=== PATIENT | male | born 1960 | race Caucasian/White ===

== ENCOUNTER 2022-10-07 10:35 | Inpatient (IN) | payer MEDICAID, SELFPAY ==
[2022-10-07] VITALS (13 sets, daily range): BP systolic 106–152; BP diastolic 58–74; PULSE 71–151; RESP 16–22; TEMP 36.2–38.5; O2SAT 88–97; BMI 23.9; BMI 25.9
--- NOTE | ~2022-10-07 | XR_ITS ---
EXAMINATION: XR CHEST CLINICAL INFORMATION: Shortness of breath. COMPARISON: Most recent chest radiograph dated 07/04/2011. TECHNIQUE: Frontal view of the chest was obtained. FINDINGS: Diffuse, dense patchy opacities throughout the entirety of the left lung. The right lung is clear. No pleural effusion or pneumothorax. Unremarkable cardiomediastinal silhouette. No acute osseous abnormality. XR/XR chest 1V IMPRESSION: Diffuse, dense patchy opacities throughout the entirety of the left lung. Findings are concerning for an infectious or inflammatory process.
--- NOTE | ~2022-10-07 | CT_ITS ---
EXAMINATION: CT CHEST, ABDOMEN AND PELVIS WITH CONTRAST CLINICAL INFORMATION: Shortness of breath. Hypoxia. Question perforation. COMPARISON: Chest radiograph done earlier the same day. CT abdomen/pelvis dated 12/31/2014. TECHNIQUE: Contiguous axial thin section helical images of the chest, abdomen and pelvis were performed following the administration of oral contrast and 85 mL of intravenous Omnipaque 350. The data set was reformatted in the coronal and sagittal planes and reviewed on an independent workstation. This CT examination was performed using dose optimization techniques as appropriate, variously including the following: *Automated exposure control *Adjustment of mA and/or kV according to patient size (this includes techniques or standardized protocols for targeted exams where dose is matched to indication/reason for exam; i.e. extremities or head) *Use of iterative reconstruction technique DLP: 818 mGy-cm. FINDINGS: LUNGS: There are diffuse patchy and centrally dense airspace opacities throughout the entirety of the left lung. Minimal patchy, ground-glass airspace opacities throughout the entirety of the right lung. No large mass or pulmonary nodule. The central airways are patent. PLEURA: No pleural effusion or pneumothorax. No pleural mass or thickening. MEDIASTINUM: No cardiomegaly. No significant pericardial effusion. No thoracic aortic dilatation or dissection. No significant mediastinal or hilar lymphadenopathy. No significant coronary artery calcification. CHEST WALL/AXILLA: No lymphadenopathy. THYROID: Unremarkable. LIVER, GALLBLADDER, AND BILIARY TREE: Normal size, shape, and attenuation. No focal hepatic lesion. No intra or extrahepatic biliary ductal dilatation. The gallbladder is unremarkable with no evidence of radiopaque gallstones, gallbladder wall thickening, or obvious pericholecystic inflammatory changes. PANCREAS: Atrophic. No inflammatory change. SPLEEN: Unremarkable. ADRENAL GLANDS: Unremarkable. KIDNEYS AND URETERS: Normal size, shape, and attenuation. No hydronephrosis, hydroureter, or calculi. No perinephric stranding. BLADDER: Unremarkable. GASTROINTESTINAL TRACT: No bowel wall thickening or inflammatory change. No bowel dilatation. No small or large bowel obstruction. The appendix is unremarkable. PERITONEAL CAVITY: No intra-abdominal free air or free fluid. ABDOMINAL WALL: No significant abdominal wall hernia. LYMPH NODES: No significant lymphadenopathy. VASCULAR: Contrast opacifies the abdominal aorta and its branch vessels. No abdominal aortic dilatation or dissection. Scattered atherosclerotic calcifications. The IVC is unremarkable. PELVIC VISCERA: Prominent prostatomegaly. OSSEOUS STRUCTURES: No acute osseous abnormality. No lytic or blastic osseous lesion. CT/CT abdomen pelvis w IV con IMPRESSION: 1. Diffuse patchy and centrally dense airspace opacities throughout the entirety of the left lung. Minimal patchy, ground-glass airspace opacities throughout the entirety of the right lung. Findings are consistent with multifocal pneumonia. No pleural effusion. 2. No significant lymphadenopathy. 3. No bowel wall thickening or inflammatory change. No small or large bowel obstruction. Unremarkable appendix. 4. No intra-abdominal mass, lymphadenopathy, or ascites. 5. Prominent prostatomegaly.
--- NOTE | ~2022-10-07 | XR_ITS ---
EXAMINATION: XR ABDOMEN KUB CLINICAL INDICATION: Abdominal distention. COMPARISON: CT abdomen and pelvis 10/07/2022 TECHNIQUE: AP view of the abdomen. FINDINGS: There is scattered stool and gas seen throughout the colon without any significant distention. There is no organomegaly. No radiopaque gallstones or renal calculi seen. There is extruded contrast opacifying urinary bladder from earlier CT abdomen and pelvis. No gross bony abnormality. XR/XR KUB IMPRESSION: Mild to moderate constipation.
--- NOTE | 2022-10-07 10:40 | ECG_ITS ---
Test Reason : SOB Blood Pressure : / mmHG Vent. Rate : 149 BPM Atrial Rate : 149 BPM P-R Int : 148 ms QRS Dur : 070 ms QT Int : 274 ms P-R-T Axes : 052 019 076 degrees QTc Int : 431 ms Sinus tachycardia Nonspecific T wave abnormality Abnormal ECG When compared with ECG of 03-FEB-2013 08:43, Vent. rate has increased BY 88 BPM Nonspecific T wave abnormality now evident in Inferior leads Referred By: Generic ED Physician Electronically Signed By:Jose Luis Nixon
[2022-10-07] MEDS: Metoprolol Tartrate 5 MG/5 ML VIAL IVPUSH (10:46)
--- NOTE | 2022-10-07 10:49 | ED.GENADULT ---
HPI - General Adult General Chief complaint: Upper Respiratory Symptoms Stated complaint: arrived by ems Time Seen by Provider: 10/07/22 10:42 Source: patient and EMS Mode of arrival: EMS History of Present Illness HPI narrative: 62-year-old male, diabetic, denies COPD, appears to be in significant pain, EMS states that he was found with an O2 sat of 50%, states that he was seen at [facility] on Saturday. Related Data Home Medications Medication Instructions Recorded Confirmed acetaminophen 500 mg tablet 1,000 mg PO Q8H PRN Pain 10/07/22 alprazolam 2 mg tablet 2 mg PO TID PRN Anxiety 10/07/22 baclofen 20 mg tablet 20 mg PO BID PRN muscle spasm 10/07/22 betamethasone dipropionate 0.05 % 1 appl topical BID 10/07/22 topical cream cholecalciferol (vitamin D3) 50 50 mcg PO DAILY 10/07/22 mcg (2,000 unit) capsule clonidine HCl 0.1 mg tablet 0.1 mg PO BID PRN Anxiety 10/07/22 duloxetine 30 mg capsule,delayed 30 mg PO BEDTIME 10/07/22 release empagliflozin 10 mg tablet 10 mg PO DAILY 10/07/22 (Jardiance) ezetimibe 10 mg tablet 10 mg PO DAILY 10/07/22 insulin glargine 100 unit/mL (3 52 unit subcut BID 10/07/22 mL) subcutaneous pen (Lantus Solostar U-100 Insulin) linagliptin 5 mg tablet (Tradjenta) 5 mg PO DAILY 10/07/22 losartan 25 mg tablet 12.5 mg PO DAILY 10/07/22 magnesium oxide 400 mg (241.3 mg 400 mg PO BEDTIME 10/07/22 magnesium) tablet melatonin 3 mg tablet 3 mg PO BEDTIME insomnia 10/07/22 metformin 1,000 mg tablet 1,000 mg PO BID 10/07/22 metoprolol tartrate 25 mg tablet 12.5 mg PO DAILY 10/07/22 mirtazapine 7.5 mg tablet 7.5 mg PO BEDTIME 10/07/22 multivitamin with folic acid 400 1 tab PO DAILY 10/07/22 mcg tablet (Daily-Robert (with folic acid)) oxycodone 5 mg tablet 10 mg PO Q4H PRN severe pain 10/07/22 pantoprazole 20 mg tablet,delayed 20 mg PO DAILY 10/07/22 release pregabalin 100 mg capsule 100 mg PO BID 10/07/22 primidone 50 mg tablet 50 mg PO DAILY 10/07/22 sertraline 100 mg tablet 100 mg PO DAILY 10/07/22 simvastatin 80 mg tablet 80 mg PO BEDTIME 10/07/22 tamsulosin 0.4 mg capsule 0.4 mg PO BEDTIME 10/07/22 Allergies Allergy/AdvReac Type Severity Reaction Status Date / Time No Known Allergies Allergy Unverified 12/10/19 15:45 Review of Systems Review of Systems: Limited due to patient's respiratory status. [facility] Past Medical History Source: nursing notes reviewed Social History Social History Alcohol intake: former Smoked in Last 30 Days: Yes Use of substances other than those prescribed or required for medical reasons: No Advance Directives: No Advance Directives Information Provided: No Physical Exam ED Vital Signs: Vital Signs - 24 hr 10/07/22 10:42 10/07/22 11:27 10/07/22 11:27 Temperature 98.8 F 98.8 F Pulse Rate 150 H 119 H Respiratory Rate 22 H 22 H Blood Pressure 106/58 L 143/73 H Pulse Oximetry 92 92 Oxygen Delivery Method Non-Rebreather Mask High Flow Nasal Cannula High Flow Nasal Cannula Oxygen Flow Rate 92 10/07/22 11:41 10/07/22 11:58 10/07/22 12:02 Temperature 99.8 F 101.3 F H Pulse Rate 121 H 120 H Respiratory Rate 18 20 18 Blood Pressure 152/73 H Pulse Oximetry 92 Oxygen Delivery Method High Flow Nasal Cannula Oxygen Flow Rate BMI result Body Mass Index 23.9 VITAL SIGNS: Reviewed. GENERAL: Well developed, well nourished, in moderate to severe distress. HEAD: Normocephalic/atraumatic, EYES: PERRLA, EOMI EARS: Ext canals without abnormality NOSE: Nares patent bilateral OROPHARYNX: no oral lesions noted, posterior pharynx clear and non-erythematous without noted tonsillar enlargement/erythema/exudates NECK: Supple, no adenopathy LUNGS: Breath sounds present bilaterally. SpO2<92> on 100% non-rebreather CARDIOVASCULAR: Sinus tachycardia and rhythm without noted murmurs, no JVD or lower extremity edema. ABDOMEN: Soft, non-tender, non-distended with bowel sounds. MUSCULOSKELETAL: No tenderness, deformities, or effusions noted on gross inspection. EXTREMITIES: No cyanosis, clubbing or edema. SKIN: Inspection of the skin reveals no rashes NEUROLOGIC: Alert and oriented x 4. Strength and sensation to light touch were grossly intact x 4. Medications Administered Discontinued Medications Generic Name Dose Route Start Last Admin Trade Name Freq PRN Reason Stop Dose Admin Sodium Chloride 1,000 mls @ 999 mls/hr 10/07/22 11:00 10/07/22 12:03 Ns IV 10/07/22 12:00 Infused .Q1H1M RYAN Infusion Iohexol 100 ml 10/07/22 11:19 10/07/22 11:19 Iohexol 350 Mg/Ml 100 Ml Infus..Btl IV 10/07/22 11:20 85 ml ONCE ONE Administration Metoprolol Tartrate 5 mg 10/07/22 10:43 10/07/22 10:46 Metoprolol Tartrate 5 Mg/5 Ml Vial IVPUSH 10/07/22 10:44 5 mg ONCE ONE Administration Medical Decision Making Medical Decision Making MDM Narrative: 62-year-old male with history and clinical presentation, DDX: Pneumonia, pneumothorax, chronic lung disease, CHF exacerbation, ACS, GI bleed, abdominal perforation. 1057: There is noted infiltrate on the left lung and concern for possible intra-abdominal perforation via chest x-ray. Son is in the waiting room and will obtain collateral information. 1103: I spoke with the son who states that is father was discharged from [facility] yesterday and he is concerned that this respiratory distress is driven by patient's copious vaping. Patient is also on chronic opioids for chronic pain. Patient himself denies vaping today. Attempts to place patient on Oxymizer instead of 100% non-rebreather, not successful as oxygenation was noted to drop down to 88%. After imaging studies will place patient on high-flow. Lactic acid and blood cultures were sent, patient has received 1 L of IV fluids and does not qualify for sepsis fluids at this time as he has not been hypotensive nor has he had a lactic acid greater than 4. ABG demonstrates hypoxia without hypercapnia and no evidence to suggest acidosis. Target for high-flow will be 92%, patient does have a vaping history, I did review the documentation from [facility] and that chest x-ray from 10/05 did not demonstrate any evidence to suggest a pneumonia. However, it did appear that patient showed up with an unspecified encephalopathy and required Narcan and had a stroke workup which was negative. Hematologic indices do not demonstrate any leukocytosis but there is a left shift, there is a normocytic anemia without thrombocytopenia. Respiratory panel is pending for evaluation of possible COVID-19 infection. No further evidence to suggest GI bleed or abdominal perforation, and BNP is within normal limits so pulmonary congestion not a factor in patient's hypoxia. Chemistry indices negative for WILLIAM or electrolyte abnormalities, hyperglycemia is noted. 1217: I discussed the case with inpatient hospitalist who accepts admission. Differential Diagnosis Differential Diagnoses: The differential diagnosis associated with the presentation includes Please see the discussion above Admission/Observation Consideration of admission/observation: Escalation of care including admission/observation considered Please see the discussion above Consult Healthcare Provider Management of the patient was discussed with: Hospitalist Please see the discussion above Lab Data MDM Lab Attestation statement: I reviewed the patient's lab results. Please see the discussion above 10/07/22 10:52 Labs: Lab Results 10/07/22 10/07/22 10/07/22 Range/Units 10:52 10:52 10:53 WBC 7.4 (4.8-10.8) X10*3/uL RBC 5.23 (4.60-5.80) X10*6/uL Hgb 13.5 L (14.0-18.0) g/dl Hct 42.0 (42.0-52.0) % MCV 80.3 (80.0-98.0) fL MCH 25.8 L (27.0-33.0) pg MCHC 32.1 (31.0-36.0) g/dl RDW 15.4 (11.0-16.0) % Plt Count 224 (160-400) X10*3/uL MPV 12.4 (9.4-12.4) fL Immature Gran % (Auto) 0.1 (0.0-0.4) % Neut % (Auto) 79.3 H (45-73) % Lymph % (Auto) 15.7 L (20-40) % [place] % (Auto) 4.3 (2-11) % Eos % (Auto) 0.3 (0-4) % Baso % (Auto) 0.3 (0-2) % Lymph # (Auto) 1.2 (1.2-4.9) X10*3/uL [place] # (Auto) 0.3 (0.1-1.2) X10*3/uL Eos # (Auto) 0.0 (0.0-0.4) X10*3/uL Baso # (Auto) 0.0 (0.0-0.2) X10*3/uL Abs Immat Gran (auto) 0.01 (0.00-0.03) X10*3/uL Absolute Neuts (auto) 5.9 (2.0-8.3) x10*3/uL Absolute Nucleated RBC 0.000 (0.0-0.012) X10*3/uL Nucleated RBC % (auto) 0.0 (0.0-0.2) /100WBC PT (10.0-13.1) SEC INR (0.9-1.1) O2 Saturation % ABG pH at Pt Temp (7.35-7.45) ABG pCO2 at Pt Temp (32-45) mmHg ABG pO2 at Pt Temp (83-108) mmHg ABG HCO3 (22-26) mmol/L ABG Base Excess (Actual) mmol/L VBG pH (7.32-7.43) VBG pCO2 mmHg VBG pO2 mmHg VBG HCO3 (22-26) mmol/L VBG O2 Saturation % VBG Base Excess mmol/L Sodium (135-145) mmol/L Potassium (3.3-5.1) mmol/L Chloride (96-108) mmol/L Carbon Dioxide (22-29) mmol/L Anion Gap (12-20) BUN (9-16) mg/dL Creatinine (0.5-1.4) mg/dL Estim Creat Clear Calc Estimated GFR Random Glucose (60-115) mg/dL Lactic Acid 3.5 H* (0.5-2.0) mmol/L Calcium (8.4-10.2) mg/dL Total Bilirubin (0.0-1.0) mg/dL AST (5-37) U/L ALT (0-40) U/L Alkaline Phosphatase (39-117) U/L B-Natriuretic Peptide 31 (<100) pg/mL Total Protein (6.5-8.0) g/dL Albumin (3.5-5.0) g/dL Ethyl Alcohol mg/dL 10/07/22 10/07/22 10/07/22 Range/Units 10:55 10:57 11:45 WBC (4.8-10.8) X10*3/uL RBC (4.60-5.80) X10*6/uL Hgb (14.0-18.0) g/dl Hct (42.0-52.0) % MCV (80.0-98.0) fL MCH (27.0-33.0) pg MCHC (31.0-36.0) g/dl RDW (11.0-16.0) % Plt Count (160-400) X10*3/uL MPV (9.4-12.4) fL Immature Gran % (Auto) (0.0-0.4) % Neut % (Auto) (45-73) % Lymph % (Auto) (20-40) % [place] % (Auto) (2-11) % Eos % (Auto) (0-4) % Baso % (Auto) (0-2) % Lymph # (Auto) (1.2-4.9) X10*3/uL [place] # (Auto) (0.1-1.2) X10*3/uL Eos # (Auto) (0.0-0.4) X10*3/uL Baso # (Auto) (0.0-0.2) X10*3/uL Abs Immat Gran (auto) (0.00-0.03) X10*3/uL Absolute Neuts (auto) (2.0-8.3) x10*3/uL Absolute Nucleated RBC (0.0-0.012) X10*3/uL Nucleated RBC % (auto) (0.0-0.2) /100WBC PT 10.0 (10.0-13.1) SEC INR 0.9 (0.9-1.1) O2 Saturation % ABG pH at Pt Temp (7.35-7.45) ABG pCO2 at Pt Temp (32-45) mmHg ABG pO2 at Pt Temp (83-108) mmHg ABG HCO3 (22-26) mmol/L ABG Base Excess (Actual) mmol/L VBG pH 7.50 H (7.32-7.43) VBG pCO2 30 mmHg VBG pO2 69 mmHg VBG HCO3 23 (22-26) mmol/L VBG O2 Saturation 92.0 % VBG Base Excess 1.6 mmol/L Sodium 144 (135-145) mmol/L Potassium 3.6 (3.3-5.1) mmol/L Chloride 107 (96-108) mmol/L Carbon Dioxide 21 L (22-29) mmol/L Anion Gap 20 (12-20) BUN 14 (9-16) mg/dL Creatinine 1.30 (0.5-1.4) mg/dL Estim Creat Clear Calc 61.9 Estimated GFR 56 Random Glucose 312 H (60-115) mg/dL Lactic Acid (0.5-2.0) mmol/L Calcium 9.8 (8.4-10.2) mg/dL Total Bilirubin 0.4 (0.0-1.0) mg/dL AST 26 (5-37) U/L ALT 22 (0-40) U/L Alkaline Phosphatase 128 H (39-117) U/L B-Natriuretic Peptide (<100) pg/mL Total Protein 7.2 (6.5-8.0) g/dL Albumin 3.9 (3.5-5.0) g/dL Ethyl Alcohol < 10 mg/dL 10/07/22 Range/Units 11:47 WBC (4.8-10.8) X10*3/uL RBC (4.60-5.80) X10*6/uL Hgb (14.0-18.0) g/dl Hct (42.0-52.0) % MCV (80.0-98.0) fL MCH (27.0-33.0) pg MCHC (31.0-36.0) g/dl RDW (11.0-16.0) % Plt Count (160-400) X10*3/uL MPV (9.4-12.4) fL Immature Gran % (Auto) (0.0-0.4) % Neut % (Auto) (45-73) % Lymph % (Auto) (20-40) % [place] % (Auto) (2-11) % Eos % (Auto) (0-4) % Baso % (Auto) (0-2) % Lymph # (Auto) (1.2-4.9) X10*3/uL [place] # (Auto) (0.1-1.2) X10*3/uL Eos # (Auto) (0.0-0.4) X10*3/uL Baso # (Auto) (0.0-0.2) X10*3/uL Abs Immat Gran (auto) (0.00-0.03) X10*3/uL Absolute Neuts (auto) (2.0-8.3) x10*3/uL Absolute Nucleated RBC (0.0-0.012) X10*3/uL Nucleated RBC % (auto) (0.0-0.2) /100WBC PT (10.0-13.1) SEC INR (0.9-1.1) O2 Saturation 83.0 % ABG pH at Pt Temp 7.35 (7.35-7.45) ABG pCO2 at Pt Temp 42 (32-45) mmHg ABG pO2 at Pt Temp 58 L (83-108) mmHg ABG HCO3 23 (22-26) mmol/L ABG Base Excess (Actual) -1.7 mmol/L VBG pH (7.32-7.43) VBG pCO2 mmHg VBG pO2 mmHg VBG HCO3 (22-26) mmol/L VBG O2 Saturation % VBG Base Excess mmol/L Sodium (135-145) mmol/L Potassium (3.3-5.1) mmol/L Chloride (96-108) mmol/L Carbon Dioxide (22-29) mmol/L Anion Gap (12-20) BUN (9-16) mg/dL Creatinine (0.5-1.4) mg/dL Estim Creat Clear Calc Estimated GFR Random Glucose (60-115) mg/dL Lactic Acid (0.5-2.0) mmol/L Calcium (8.4-10.2) mg/dL Total Bilirubin (0.0-1.0) mg/dL AST (5-37) U/L ALT (0-40) U/L Alkaline Phosphatase (39-117) U/L B-Natriuretic Peptide (<100) pg/mL Total Protein (6.5-8.0) g/dL Albumin (3.5-5.0) g/dL Ethyl Alcohol mg/dL Independent Interpretation I performed an independent interpretation of an: EKG Interpretation: Sinus tachycardia, HR-149, no STEMI, MN/QRS/QTC is within normal limits. Radiology Impression Radiologist Impression: Multifocal pneumonia, no abdominal perforation otherwise my interpretation is in agreement with radiology's impression. Chronic Conditions Patient?s care impacted by: Diabetes Critical Care Time Critical Care Time Critical Care Time: Yes Total Critical Care Time: 60 Attestation: I personally attest to this time spent taking care of the patient. Discharge Plan Discharge Clinical Impression: Sepsis, Multifocal pneumonia, Acute respiratory failure with hypoxia Patient Disposition: Admitted As Inpatient
[2022-10-07 10:59] LABS: MANUAL DIFF FLAG NO
[2022-10-07 11:00] LABS: Basophils Percent Auto 0.3 % (0-2); Eosinophils Percent Auto 0.3 % (0-4); Hemoglobin 13.5 g/dl (14.0-18.0); Imm Gran Abs Auto 0.01 X10*3/uL (0.00-0.03); Imm Gran Pct Auto 0.1 % (0.0-0.4); Lymphocytes Absolute Auto 1.2 X10*3/uL (1.2-4.9); Lymphocytes Percent Auto 15.7 % (20-40); Mean Corpuscular HGB Conc 32.1 g/dl (31.0-36.0); Mean Corpuscular Hemoglobin 25.8 pg (27.0-33.0); Mean Corpuscular Volume 80.3 fL (80.0-98.0); Mean Platelet Volume 12.4 fL (9.4-12.4); Monocytes Absolute Auto 0.3 X10*3/uL (0.1-1.2); Monocytes Percent Auto 4.3 % (2-11); Neutrophils Absolute Auto 5.9 x10*3/uL (2.0-8.3); Neutrophils Percent Auto 79.3 % (45-73); Platelet Count 224 X10*3/uL (160-400); Red Blood Count 5.23 X10*6/uL (4.60-5.80); Red Cell Distribution Width 15.4 % (11.0-16.0); White Blood Count 7.4 X10*3/uL (4.8-10.8)
[2022-10-07 11:00] LABS: Venous Blood Gas Refer to POC result
[2022-10-07 11:03] LABS: VBG Base Excess 1.6 mmol/L; VBG HCO3 23 mmol/L (22-26); VBG pCO2 30 mmHg; VBG pO2 69 mmHg
[2022-10-07 11:15] LABS: Lactic Acid 3.5 mmol/L (0.5-2.0)
[2022-10-07] MEDS: iohexoL 350 MG/ML 100 ML INFUS..BTL IV (11:19)
[2022-10-07] MEDS: 0.9 % Sodium Chloride 1,000 ML 999 ML IV ×2 (11:26→13:48)
[2022-10-07 11:27] LABS: B Type Natriuretic Peptide 31 pg/mL (<100)
[2022-10-07 11:28] LABS: INTERNATIONAL NORM RATIO 0.9 (0.9-1.1)
--- NOTE | 2022-10-07 11:32 | PC.NURSE ---
Patient arrived from ems from home after having difficulty breathing. Patient reports he was at [facility] saturday and discharged yesterday. States upon discharge was told all tests were negative and was feeling better. Reports woke up this am sob and vomited x 2. upon bls arrival patient 50% on RA. Upon arrival 88% on 15 liters non-rebreather.. EKG obtained. Patient schneider and lethargic. Patient tachy in 150`s - states did not take home meds. IV met given - HR 120`s. Placed on pads, respiratory at bedside. IV fluids running per order. Son at bedside. Denies etoh/drug use. States last vaped yesterday. Sinus tachy on monitor. Respiratory switched patient to highflow, patient tolerating well. Sating 94%, more alert, denies pain.
[2022-10-07 11:58] LABS: ABG Base Excess -1.7 mmol/L; ABG HCO3 23 mmol/L (22-26); ABG pCO2 42 mmHg (32-45); ABG pH 7.35 (7.35-7.45); ABG pO2 58 mmHg (83-108)
[2022-10-07 11:59] LABS: Anion Gap 20 (12-20)
--- NOTE | 2022-10-07 12:03 | PC.NURSE ---
temp 101.3, provider notified
[2022-10-07 12:05] LABS: Alanine Aminotransferase 22 U/L (0-40); Albumin Level 3.9 g/dL (3.5-5.0); Alkaline Phosphatase 128 U/L (39-117); Aspartate Amino Transferase 26 U/L (5-37); Bilirubin Total 0.4 mg/dL (0.0-1.0); Blood Urea Nitrogen 14 mg/dL (9-16); Calcium 9.8 mg/dL (8.4-10.2); Carbon Dioxide 21 mmol/L (22-29); Chloride 107 mmol/L (96-108); Creatinine Clr Calc Pharmacy 61.9; Estimated Glomerular Filt Rate 56; Ethanol < 10 mg/dL; Glucose Random 312 mg/dL (60-115); Potassium 3.6 mmol/L (3.3-5.1); Sodium 144 mmol/L (135-145); Total Protein 7.2 g/dL (6.5-8.0)
[2022-10-07 12:08] LABS: ABG Refer to POC result
--- NOTE | 2022-10-07 12:12 | PC.NURSE ---
sating 94% on high flow 55/50. HR 114.
[2022-10-07] MEDS: Piperacillin Sodium/Tazobactam 3.375 GM in 0.9 % Sodium Chloride 50 ML IV (12:21)
[2022-10-07] MEDS: Acetaminophen 325 MG TABLET 975 MG PO (12:21)
[2022-10-07] MEDS: Ketorolac Tromethamine 30 MG/ML VIAL 15 MG IVPUSH (12:21)
[2022-10-07 12:51] LABS: Influenza A PCR NEGATIVE (Negative); Influenza B PCR NEGATIVE (Negative); Resp Syncy Virus RNA Qual PCR NEGATIVE (Negative); SARS COV2 PCR INHOUSE NEGATIVE (Negative)
[2022-10-07 12:58] LABS: Reflex Lactate? Lactic Acid Added
--- NOTE | 2022-10-07 13:17 | PC.NURSE ---
Pads removed per provider request
--- NOTE | 2022-10-07 13:22 | PHA.MEDREC ---
Pharmacy Consult ? Medication Reconciliation Pharmacy has completed the medication reconciliation. Spoke to patient to confirm meds.
--- NOTE | 2022-10-07 13:26 | PM.IMHP ---
History of Present Illness Date of Service: 10/07/22 Attending physician on admission: Anibal Alarcon Chief Complaint: sob 62-year-old male with history of depression anxiety, insulin-dependent type 2 diabetes, fibromyalgia, dyslipidemia, peripheral neuropathy, persistent moderate somatic symptom disorder, history of polysubstance abuse including cocaine and marijuana but denies any ongoing use who is a former smoker presents to the ED earlier this morning for evaluation of shortness of breath. Patient was discharged from [facility] from 10/05-10/06 for acute toxic metabolic encephalopathy likely related to polypharmacy, admission complicated by WILLIAM and elevated trop in setting WILLIAM. Sedating medications were adjusted on discharge at [facility] yesterday. Pt denies taking medications inapparopriately. This morning reports he woke up with significant shortness breath and orthopnea. He has also had headache, lightheadedness, and reports coughing so hard that he did vomit x1. Denies any fevers or chills at home, no abdominal pain, nausea, diarrhea, constipation, urinary symptoms, ongoing cough, palpitations, or chest pains. Last BM was yesterday. He denies any illicit drug use, ongoing smoking, or alcohol use. On arrival, patient was afebrile but did develop a fever of 101.3. He has been tachycardic ranging 119-150 and tachypneic to 22. No hypotension. Per EMS, was satting at 50% on arrival and placed on non-rebreather. He is now resting comfortably on high-flow O2 at 60%. EKG showed NSR, rate 149, with nonspecific T-wave abnormality but no ST E or depressions. There is no leukocytosis. Mild normocytic anemia with H/H 13.5/42.0%. Creatinine 1.30, BUN 14, electrolyte levels normal, glucose 312. Initial lactic acid 3.5, repeat 3.1 following 1 L IVF bolus. BNP 31. Ethyl alcohol level below detectable limits. Urine tox screen pending. Negative for influenza, RSV. Initial chest x-ray showing diffuse, dense patchy opacities throughout the entirety of the left lung. VBG and ABG reassuring. Follow-up chest CT showing diffuse patchy and centrally dense airspace opacities throughout the entirety of the left lung with minimal patchy, ground-glass airspace opacities throughout the entirety of the right lung consistent with the multifocal pneumonia. No pleural effusions or edema. CT abdomen/pelvis negative for any acute intra-abdominal abnormality. In the ED, received 975 mg Tylenol, 15 mg IV to ketorolac, 5 mg push IV Lopressor, 1 L IV NS, 3.375 g Zosyn. Patient seen at bedside with Dr. Alarcon and initially noted to be somewhat encephalopathic. Requested I see a provider evaluate patient given the 60% high-flow O2 and encephalopathy. Bedside echo was performed by ICU provider which was without significant abnormality. Etiology of patient's symptoms unlikely to be cardiac in nature. Recommending admission to hospitalist service. Review of Systems Review of Systems: General: No fevers, malaise, unintentional weight loss HEENT: No sore throat, nasal congestion, rhinorrhea, sinus pain, ear pain Cardiovascular: No chest pain, palpitations, or leg edema Respiratory: +sob, +cough. No wheezing GI: +vomiting. No abdominal pain, nausea, diarrhea, constipation, melena, hematochezia : No dysuria, hematuria, increased urinary frequency, decreased urinary output MSK: No myalgia, back pain Neuro: +headache. No weakness, paresthesias. Skin: No rashes or lesions [facility] Medical History Chronic pain disorder Depression with anxiety Dyslipidemia Fibromyalgia History of cocaine use History of marijuana use Insulin dependent type 2 diabetes mellitus Opioid dependence Peripheral neuropathy Persistent moderate somatic symptom disorder Social History Household Members: Spouse and Family Housing: House Do you presently have visiting nurse or other home services: Yes Alcohol intake: former Patient Tobacco Use Status: Never used Tobacco service: No Meds Allergies Allergy/AdvReac Type Severity Reaction Status Date / Time No Known Allergies Allergy Unverified 12/10/19 15:45 Active Medications: Current Medications Acetaminophen (Acetaminophen 325 Mg Tablet) 650 mg PO Q6H PRN PRN Reason: Pain, Mild (Pain Scale 1-3) Dextrose (Dextrose 50 % 25 Gm/50 Ml Syringe) 25 gm IVPUSH Q15M PRN; Protocol PRN Reason: per Hypoglycemia Standing Ord. Enoxaparin Sodium (Enoxaparin Sodium 40 Mg/0.4 Ml Syringe) 40 mg SUBCUT Q24H RYAN Glucose (Glucose Gel 15 Gm Gel..Gram.) 15 gm PO Q15M PRN; Protocol PRN Reason: per Hypoglycemia Standing Ord. Vancomycin HCl (Vancomycin/Ns) 2,000 mg in 500 mls @ 250 mls/hr IV ONCE ONE Stop: 10/07/22 14:59 Piperacillin Sod/Tazobactam (Sod 4.5 gm/ Sodium Chloride) 100 mls @ 200 mls/hr IV Q6H REPLACED BY [facility] Insulin Human Lispro (Insulin Lispro 100 Unit/Ml 3 Ml Vial) 0 unit SUBCUT QIDACHS REPLACED BY [facility]; Protocol Ondansetron HCl (Ondansetron Hcl 4 Mg/2 Ml Vial) 4 mg IVPUSH Q8H PRN PRN Reason: Nausea and Vomiting Pharmacy Consult (Consult Rx Perform Med Rec) 1 each MISCELLANE ONCE PRN PRN Reason: Consult order Pharmacy Consult (Consult Rx Vancomycin Dosing) 1 each MISCELLANE DAILY PRN PRN Reason: Consult order Senna (Sennosides 8.6 Mg Tablet) 17.2 mg PO BEDTIME PRN PRN Reason: Constipation Sodium Chloride (0.9 % Sodium Chloride Flush 3 Ml Syringe) 3 ml IVFLUSH QSHIFT REPLACED BY [facility] Home Medications Medication Instructions Recorded Confirmed Last Taken Type acetaminophen 500 mg tablet 1,000 mg PO Q8H PRN Pain 10/07/22 10/07/22 Unknown History alprazolam 2 mg tablet 2 mg PO TID PRN Anxiety 10/07/22 10/07/22 Unknown History baclofen 20 mg tablet 20 mg PO BID PRN muscle spasm 10/07/22 10/07/22 Unknown History betamethasone dipropionate 0.05 % 1 appl topical BID 10/07/22 10/07/22 10/07/22 09:00 History topical cream cholecalciferol (vitamin D3) 50 50 mcg PO DAILY 10/07/22 10/07/22 10/07/22 09:00 History mcg (2,000 unit) capsule clonidine HCl 0.1 mg tablet 0.1 mg PO BID PRN Anxiety 10/07/22 10/07/22 Unknown History duloxetine 30 mg capsule,delayed 30 mg PO BEDTIME 10/07/22 10/07/22 10/06/22 History release empagliflozin 10 mg tablet 10 mg PO DAILY 10/07/22 10/07/22 10/07/22 09:00 History (Jardiance) ezetimibe 10 mg tablet 10 mg PO DAILY 10/07/22 10/07/22 10/07/22 09:00 History insulin glargine 100 unit/mL (3 50 unit subcut BEDTIME 10/07/22 10/07/22 10/06/22 History mL) subcutaneous pen (Lantus Solostar U-100 Insulin) insulin glargine 100 unit/mL (3 52 unit subcut DAILY 10/07/22 10/07/22 Unknown History mL) subcutaneous pen (Lantus Solostar U-100 Insulin) linagliptin 5 mg tablet (Tradjenta) 5 mg PO DAILY 10/07/22 10/07/22 10/07/22 09:00 History losartan 25 mg tablet 12.5 mg PO DAILY@1200 10/07/22 10/07/22 Unknown History magnesium oxide 400 mg (241.3 mg 400 mg PO BEDTIME 10/07/22 10/07/22 10/06/22 History magnesium) tablet melatonin 3 mg tablet 3 mg PO BEDTIME insomnia 10/07/22 10/07/22 10/06/22 History metformin 1,000 mg tablet 1,000 mg PO BID 10/07/22 10/07/22 10/07/22 09:00 History metoprolol tartrate 25 mg tablet 12.5 mg PO DAILY 10/07/22 10/07/22 10/07/22 09:00 History mirtazapine 7.5 mg tablet 7.5 mg PO BEDTIME 10/07/22 10/07/22 10/06/22 History multivitamin with folic acid 400 1 tab PO DAILY 10/07/22 10/07/22 10/07/22 09:00 History mcg tablet (Daily-Robert (with folic acid)) oxycodone 5 mg tablet 10 mg PO Q4H PRN severe pain 10/07/22 10/07/22 Unknown History pantoprazole 20 mg tablet,delayed 20 mg PO DAILY@0630 10/07/22 10/07/22 10/07/22 06:30 History release pregabalin 100 mg capsule 100 mg PO BID 10/07/22 10/07/22 10/07/22 09:00 History primidone 50 mg tablet 50 mg PO DAILY 10/07/22 10/07/22 10/07/22 09:00 History sertraline 100 mg tablet 100 mg PO DAILY 10/07/22 10/07/22 10/07/22 09:00 History simvastatin 80 mg tablet 80 mg PO BEDTIME 10/07/22 10/07/22 10/06/22 History tamsulosin 0.4 mg capsule 0.4 mg PO BEDTIME 10/07/22 10/07/22 10/06/22 History Physical Exam Vital Signs and Narrative: Vital Signs: Last Vital Signs Temp 101.3 F H 10/07/22 12:02 Pulse 120 H 10/07/22 12:02 Resp 18 10/07/22 12:02 BP 152/73 H 10/07/22 11:41 Pulse Ox 92 10/07/22 11:41 O2 Del Method High Flow Nasal C annula 10/07/22 11:41 O2 Flow Rate 92 10/07/22 11:27 Oxygen Flow Rate 15 10/07/22 10:42 BMI result Body Mass Index 23.9 Constitutional - Awake and Alert, No apparent distress Eyes - PERRLA, EOMI Cardiovascular - S1S2, RRR, No edema Respiratory - Normal lung expansion, Normal respiratory effort, No respiratory distress on 60% high flow, rhonchi LLL scattered expiratory wheezing anteriorly Gastrointestinal - NT, soft but moderately distended, +BS; No rebound or guarding Extremities - no calf tenderness bilaterally, no swelling Skin - Warm/Dry Neurological - Alert & oriented x3 Psychological - Appropriate affect Results Labs 10/07/22 10:52 10/07/22 11:45 Labs: Laboratory Results - last 24 hr 10/07/22 10/07/22 10/07/22 10:52 10:52 10:53 MCV 80.3 MCH 25.8 L MCHC 32.1 RDW 15.4 Plt Count 224 MPV 12.4 Immature Gran % (Auto) 0.1 Neut % (Auto) 79.3 H Lymph % (Auto) 15.7 L Nolan % (Auto) 4.3 Eos % (Auto) 0.3 Baso % (Auto) 0.3 Lymph # (Auto) 1.2 Nolan # (Auto) 0.3 Eos # (Auto) 0.0 Baso # (Auto) 0.0 Abs Immat Gran (auto) 0.01 Absolute Neuts (auto) 5.9 Absolute Nucleated RBC 0.000 Nucleated RBC % (auto) 0.0 PT INR O2 Saturation ABG pH at Pt Temp ABG pCO2 at Pt Temp ABG pO2 at Pt Temp ABG HCO3 ABG Base Excess (Actual) VBG pH VBG pCO2 VBG pO2 VBG HCO3 VBG O2 Saturation VBG Base Excess Anion Gap Estim Creat Clear Calc Estimated GFR Random Glucose Lactic Acid 3.5 H* Calcium Total Bilirubin AST ALT Alkaline Phosphatase B-Natriuretic Peptide 31 Total Protein Albumin Ethyl Alcohol Influenza Type A (PCR) Influenza Type B (PCR) RSV RNA Qual (PCR) SARS-CoV-2 RNA (RT-PCR) 10/07/22 10/07/22 10/07/22 10:55 10:57 11:45 MCV MCH MCHC RDW Plt Count MPV Immature Gran % (Auto) Neut % (Auto) Lymph % (Auto) Nolan % (Auto) Eos % (Auto) Baso % (Auto) Lymph # (Auto) Nolan # (Auto) Eos # (Auto) Baso # (Auto) Abs Immat Gran (auto) Absolute Neuts (auto) Absolute Nucleated RBC Nucleated RBC % (auto) PT 10.0 INR 0.9 O2 Saturation ABG pH at Pt Temp ABG pCO2 at Pt Temp ABG pO2 at Pt Temp ABG HCO3 ABG Base Excess (Actual) VBG pH 7.50 H VBG pCO2 30 VBG pO2 69 VBG HCO3 23 VBG O2 Saturation 92.0 VBG Base Excess 1.6 Anion Gap 20 Estim Creat Clear Calc 61.9 Estimated GFR 56 Random Glucose 312 H Lactic Acid Calcium 9.8 Total Bilirubin 0.4 AST 26 ALT 22 Alkaline Phosphatase 128 H B-Natriuretic Peptide Total Protein 7.2 Albumin 3.9 Ethyl Alcohol < 10 Influenza Type A (PCR) Influenza Type B (PCR) RSV RNA Qual (PCR) SARS-CoV-2 RNA (RT-PCR) 10/07/22 10/07/22 11:45 11:47 MCV MCH MCHC RDW Plt Count MPV Immature Gran % (Auto) Neut % (Auto) Lymph % (Auto) Nolan % (Auto) Eos % (Auto) Baso % (Auto) Lymph # (Auto) Nolan # (Auto) Eos # (Auto) Baso # (Auto) Abs Immat Gran (auto) Absolute Neuts (auto) Absolute Nucleated RBC Nucleated RBC % (auto) PT INR O2 Saturation 83.0 ABG pH at Pt Temp 7.35 ABG pCO2 at Pt Temp 42 ABG pO2 at Pt Temp 58 L ABG HCO3 23 ABG Base Excess (Actual) -1.7 VBG pH VBG pCO2 VBG pO2 VBG HCO3 VBG O2 Saturation VBG Base Excess Anion Gap Estim Creat Clear Calc Estimated GFR Random Glucose Lactic Acid Calcium Total Bilirubin AST ALT Alkaline Phosphatase B-Natriuretic Peptide Total Protein Albumin Ethyl Alcohol Influenza Type A (PCR) NEGATIVE Influenza Type B (PCR) NEGATIVE RSV RNA Qual (PCR) NEGATIVE SARS-CoV-2 RNA (RT-PCR) NEGATIVE Imaging Radiologist's Impressions: Impressions Chest X-Ray 10/07/22 10:56 IMPRESSION: Diffuse, dense patchy opacities throughout the entirety of the left lung. Findings are concerning for an infectious or inflammatory process. Abdomen/Pelvis CT 10/07/22 11:28 IMPRESSION: 1. Diffuse patchy and centrally dense airspace opacities throughout the entirety of the left lung. Minimal patchy, ground-glass airspace opacities throughout the entirety of the right lung. Findings are consistent with multifocal pneumonia. No pleural effusion. 2. No significant lymphadenopathy. 3. No bowel wall thickening or inflammatory change. No small or large bowel obstruction. Unremarkable appendix. 4. No intra-abdominal mass, lymphadenopathy, or ascites. 5. Prominent prostatomegaly. Chest CT 10/07/22 11:28 IMPRESSION: 1. Diffuse patchy and centrally dense airspace opacities throughout the entirety of the left lung. Minimal patchy, ground-glass airspace opacities throughout the entirety of the right lung. Findings are consistent with multifocal pneumonia. No pleural effusion. 2. No significant lymphadenopathy. 3. No bowel wall thickening or inflammatory change. No small or large bowel obstruction. Unremarkable appendix. 4. No intra-abdominal mass, lymphadenopathy, or ascites. 5. Prominent prostatomegaly. Assessment and Plan (1) Multifocal pneumonia: Status: Acute (2) Acute respiratory failure with hypoxia: Status: Acute (3) Sepsis: Status: Acute (4) Opioid dependence: Status: Acute Plan 62-year-old male with history of depression anxiety, insulin-dependent type 2 diabetes, fibromyalgia, dyslipidemia, peripheral neuropathy, persistent moderate somatic symptom disorder, history of polysubstance abuse including cocaine and marijuana but denies any ongoing use who is a former smoker admitted for further management of multifocal pneumonia due to suspected aspiration with acute hypoxemic respiratory failure and sepsis. #Acute multifocal pneumonia with severe sepsis -No leukocytosis. Tachycardic to 150, tachypneic to 22, lactic acidosis 3.5--> 3.1 (. No hypotension. Addl bolus 1L IV NS given, then continue IV NS @80ml/hr -CT chest showing diffuse patchy and centrally dense airspace opacity throughout the entirety of the left long along with minimal patchy, ground-glass airspace opacities throughout the entirety of the right lung -Suspect aspiration given recent admission to [facility] for acute toxic metabolic encephatlopathy, with discharge yesterday, however, will also cover for HCAP -IV zosyn and vancomycin (initiated 10/07) -Continue supplemental O2 -keep NPO for now, [employer] eval pending -sputum culture, Legionella antigen, strep pneumo antigen pending -Follow lactic acid, CBC, blood cultures -Admit to med/tele # acute hypoxemic respiratory failure -likely secondary to above -ABG with pH 7.35, pCO2 42, PO2 58, bicarb 23 -Bedside echo performed by ICU provider and is without significant abnormality -Continue high flow O2, titrate as appropriate #Acute toxic metabolic encephalopathy -mentation baseline on my exam, but seemed encephalopathic per Dr. Alarcon -Recent adm [facility] 10/05- for toxic metabolic encephalopathy with sedating medication adjusted on discharge -Will further titrate xanax, oxycocone, lyrica -Monitor mentation #Insulin-dependent type 2 diabetes- with hyperglycemia -dose adjusted basal insulin -hold oral antihyperglycemics. Continue Jardiance -Humalog on sliding scale -POC glucose -NPO for now # chronic pain disorder -sedating medications adjusted as above due to toxic metabolic encephalopathy. -continue oxycodone and Lyrica at reduced dose. Continue baclofen p.r.n. -outpatient pain management follow-up # history of polysubstance abuse -denies ongoing use, U tox pending DVT prophylaxis-Lovenox Full code Patient requires inpatient stay of at least 2 midnights for management of acute multifocal pneumonia with severe sepsis and acute hypoxemic respiratory failure requiring IV antibiotics, high-flow supplemental O2 and close monitoring to prevent cardiopulmonary decompensation including progression to septic shock Time Spent With Patient Time: Total time managing care of this patient today ____ minutes. Quality Stroke Does the patient have a stroke diagnosis?: No VTE Prior VTE?: No VTE Risk Level:: Medical - moderate - high VTE Device Contraindication: Treatment Not Indicated VTE Drug Contraindication: N/A - Med Ordered
--- NOTE | 2022-10-07 13:29 | P.CONCC_ITS ---
History of Present Illness Data of Consult Service Date: 10/07/22 Requesting physician: Anibal Alarcon Primary Care Provider: Unknown Physician HPI Reason for consult: hypoxic respiratory failure 62-year-old male who was just discharged 24 hours ago from [facility] presented with increasing dyspnea and apparently because of chronic back pain is maintained on of 5 mg oxycodone but when last admitted to [facility] with an overdose he was on a Narcan drip and when discharged he was discharged on the oxycodone p.r.n. but also alprazolam for some reason or other and he does remember having nausea and vomiting the night before and the chest CT scan shows multilobar in coalescing nodular infiltrate predominantly on the left side but with some ground-glass nodular infiltrate involving right middle lobe as well but he has got extensive consolidation on the left side but it is upper and lo wer lobes as well as the lingula he is in no acute distress he is on nasal high-flow in very comfortable with a saturation over 90% he does not have yet the significant white count or left shift the abdominal CT scan does not show any pathology but right now he has got a markedly distended abdomen but nontender ECG shows borderline left ventricular enlargement by voltage but no ST-T changes and he is in sinus tachycardia my bedside echo shows normal left ventricular dimension somewhat hyperdynamic 65% ejection fraction not hypertrophic not dilated and right ventricle is normal in is just a trace pericardial effusion no primary valve disease Review of Systems Review of Systems: Yes all other systems are reviewed and are negative [facility] Past Medical History Medical History (Updated 10/07/22 @ 13:34 by Josefa Bello MD) Opioid dependence Social History Social History Alcohol intake: former Smoked in Last 30 Days: Yes Use of substances other than those prescribed or required for medical reasons: No Advance Directives: No Advance Directives Information Provided: No Meds Allergies Allergy/AdvReac Type Severity Reaction Status Date / Time No Known Allergies Allergy Unverified 12/10/19 15:45 Active Medications: Current Medications Acetaminophen (Acetaminophen 325 Mg Tablet) 650 mg PO Q6H PRN PRN Reason: Pain, Mild (Pain Scale 1-3) Alprazolam (Alprazolam 0.5 Mg Tablet) 2 mg PO TID PRN PRN Reason: Anxiety Baclofen (Baclofen 20 Mg Tablet) 20 mg PO BID PRN PRN Reason: muscle spasm Clonidine HCl (Clonidine Hcl 0.1 Mg Tablet) 0.1 mg PO BID PRN; Protocol PRN Reason: Anxiety Dextrose (Dextrose 50 % 25 Gm/50 Ml Syringe) 25 gm IVPUSH Q15M PRN; Protocol PRN Reason: per Hypoglycemia Standing Ord. Duloxetine HCl (Duloxetine Hcl 30 Mg Capsule.Dr) 30 mg PO BEDTIME RYAN Ezetimibe (Ezetimibe 10 Mg Tablet) 10 mg PO DAILY RYAN Empagliflozin (Empagliflozin 10 Mg Tablet) 10 mg PO DAILY RYAN Enoxaparin Sodium (Enoxaparin Sodium 40 Mg/0.4 Ml Syringe) 40 mg SUBCUT Q24H RYAN Glucose (Glucose Gel 15 Gm Gel..Gram.) 15 gm PO Q15M PRN; Protocol PRN Reason: per Hypoglycemia Standing Ord. Vancomycin HCl (Vancomycin/Ns) 2,000 mg in 500 mls @ 250 mls/hr IV ONCE ONE Stop: 10/07/22 14:59 Piperacillin Sod/Tazobactam (Sod 4.5 gm/ Sodium Chloride) 100 mls @ 200 mls/hr IV Q6H RYAN Insulin Glargine (Insulin Glargine,Hum.Rec.Anlog 100 Unit/Ml 10 Ml Vial) 38 unit SUBCUT BEDTIME RYAN Insulin Glargine (Insulin Glargine,Hum.Rec.Anlog 100 Unit/Ml 10 Ml Vial) 40 unit SUBCUT DAILY RYAN Insulin Human Lispro (Insulin Lispro 100 Unit/Ml 3 Ml Vial) 0 unit SUBCUT QIDACHS RYAN; Protocol Losartan Potassium (Losartan Potassium 25 Mg Tablet) 12.5 mg PO DAILY@1200 RYAN; Protocol Magnesium Oxide (Magnesium Oxide 400 Mg Tablet) 400 mg PO BEDTIME [facility] Melatonin (Melatonin 3 Mg Tablet) 3 mg PO BEDTIME RYAN Metoprolol Tartrate (Metoprolol Tartrate 12.5 Mg Halftab) 12.5 mg PO DAILY [facility]; Protocol Mirtazapine (Mirtazapine 7.5 Mg Tablet) 7.5 mg PO BEDTIME RYAN Multivitamins/Vitamin C (Multivitamin Tablet) 1 tab PO DAILY [facility] Non-Formulary Medication (Betamethasone Dipropionate) 1 appl TOPICAL BID RYAN Non-Formulary Medication (Pantoprazole) 20 mg PO DAILY@0630 [facility] Non-Formulary Medication (Simvastatin) 80 mg PO BEDTIME RYAN Ondansetron HCl (Ondansetron Hcl 4 Mg/2 Ml Vial) 4 mg IVPUSH Q8H PRN PRN Reason: Nausea and Vomiting Oxycodone HCl (Oxycodone Hcl Immed Release 5 Mg Tablet) 10 mg PO Q4H PRN PRN Reason: severe pain Pharmacy Consult (Consult Rx Perform Med Rec) 1 each MISCELLANE ONCE PRN PRN Reason: Consult order Pharmacy Consult (Consult Rx Vancomycin Dosing) 1 each MISCELLANE DAILY PRN PRN Reason: Consult order Pregabalin (Pregabalin 100 Mg Capsule) 100 mg PO BID RYAN Primidone (Primidone 50 Mg Tablet) 50 mg PO DAILY [facility] Senna (Sennosides 8.6 Mg Tablet) 17.2 mg PO BEDTIME PRN PRN Reason: Constipation Sertraline HCl (Sertraline Hcl 100 Mg Tablet) 100 mg PO DAILY [facility] Sodium Chloride (0.9 % Sodium Chloride Flush 3 Ml Syringe) 3 ml IVFLUSH QSHIFT RYAN Tamsulosin HCl (Tamsulosin Hcl 0.4 Mg Capsule) 0.4 mg PO BEDTIME [facility] Vitamin D (Cholecalciferol (Vitamin D3) 25 Mcg Tablet) 50 mcg PO DAILY [facility] Home Medications Medication Instructions Recorded Confirmed Last Taken Type acetaminophen 500 mg tablet 1,000 mg PO Q8H PRN Pain 10/07/22 10/07/22 Unknown History alprazolam 2 mg tablet 2 mg PO TID PRN Anxiety 10/07/22 10/07/22 Unknown History baclofen 20 mg tablet 20 mg PO BID PRN muscle spasm 10/07/22 10/07/22 Unknown History betamethasone dipropionate 0.05 % 1 appl topical BID 10/07/22 10/07/22 10/07/22 09:00 History topical cream cholecalciferol (vitamin D3) 50 50 mcg PO DAILY 10/07/22 10/07/22 10/07/22 09:00 History mcg (2,000 unit) capsule clonidine HCl 0.1 mg tablet 0.1 mg PO BID PRN Anxiety 10/07/22 10/07/22 Unknown History duloxetine 30 mg capsule,delayed 30 mg PO BEDTIME 10/07/22 10/07/22 10/06/22 History release empagliflozin 10 mg tablet 10 mg PO DAILY 10/07/22 10/07/2223 09:00 History (Jardiance) ezetimibe 10 mg tablet 10 mg PO DAILY 10/07/22 10/07/22 10/07/22 09:00 History insulin glargine 100 unit/mL (3 50 unit subcut BEDTIME 10/07/22 10/07/22 10/06/22 History mL) subcutaneous pen (Lantus Solostar U-100 Insulin) insulin glargine 100 unit/mL (3 52 unit subcut DAILY 10/07/22 10/07/22 Unknown History mL) subcutaneous pen (Lantus Solostar U-100 Insulin) linagliptin 5 mg tablet (Tradjenta) 5 mg PO DAILY 10/07/22 10/07/22 10/07/22 09:00 History losartan 25 mg tablet 12.5 mg PO DAILY@1200 10/07/22 10/07/22 Unknown History magnesium oxide 400 mg (241.3 mg 400 mg PO BEDTIME 10/07/22 10/07/22 10/06/22 History magnesium) tablet melatonin 3 mg tablet 3 mg PO BEDTIME insomnia 10/07/22 10/07/22 10/06/22 History metformin 1,000 mg tablet 1,000 mg PO BID 10/07/22 10/07/22 10/07/22 09:00 History metoprolol tartrate 25 mg tablet 12.5 mg PO DAILY 10/07/22 10/07/22 10/07/22 09:00 History mirtazapine 7.5 mg tablet 7.5 mg PO BEDTIME 10/07/22 10/07/22 10/06/22 History multivitamin with folic acid 400 1 tab PO DAILY 10/07/22 10/07/22 10/07/22 09:00 History mcg tablet (Daily-Robert (with folic acid)) oxycodone 5 mg tablet 10 mg PO Q4H PRN severe pain 10/07/22 10/07/22 Unknown History pantoprazole 20 mg tablet,delayed 20 mg PO DAILY@0630 10/07/22 10/07/22 10/07/22 06:30 History release pregabalin 100 mg capsule 100 mg PO BID 10/07/22 10/07/22 10/07/22 09:00 History primidone 50 mg tablet 50 mg PO DAILY 10/07/22 10/07/22 10/07/22 09:00 History sertraline 100 mg tablet 100 mg PO DAILY 10/07/22 10/07/22 10/07/22 09:00 History simvastatin 80 mg tablet 80 mg PO BEDTIME 10/07/22 10/07/22 10/06/22 History tamsulosin 0.4 mg capsule 0.4 mg PO BEDTIME 10/07/22 10/07/22 10/06/22 History Physical Exam Vital Signs: Vital Signs: Last Vital Signs Temp 101.3 F H 10/07/22 12:02 Pulse 120 H 10/07/22 12:02 Resp 18 10/07/22 12:02 BP 152/73 H 10/07/22 11:41 Pulse Ox 92 10/07/22 11:41 O2 Del Method High Flow Nasal C annula 10/07/22 11:41 O2 Flow Rate 92 10/07/22 11:27 Oxygen Flow Rate 15 10/07/22 10:42 BMI result Body Mass Index 23.9 awake alert oriented and nonfocal neurologically bedside echo showing normal LV and RV function abdomen tensely distended no palpable organomegaly nontender and no rebound this is not a surgical abdomen skin is no acrocyanosis no no redness no evidence of tics etc. Results Labs 10/07/22 10:52 10/07/22 11:45 Labs: Short CBC 10/07/22 Range/Units 10:52 WBC 7.4 (4.8-10.8) X10*3/uL Hgb 13.5 L (14.0-18.0) g/dl Hct 42.0 (42.0-52.0) % Plt Count 224 (160-400) X10*3/uL BMP 10/07/22 11:45 Sodium 144 Potassium 3.6 Chloride 107 Carbon Dioxide 21 L BUN 14 Creatinine 1.30 Calcium 9.8 Liver Function 10/07/22 Range/Units 11:45 Total Bilirubin 0.4 (0.0-1.0) mg/dL AST 26 (5-37) U/L ALT 22 (0-40) U/L Alkaline Phosphatase 128 H (39-117) U/L Albumin 3.9 (3.5-5.0) g/dL Assessment and Plan (1) Opioid dependence: Status: Acute Plan my 1st guess with a combination of alprazolam and oxycodone is that in the face of the vomiting the night before he aspirated predominantly on his left side involving all lobes but the right middle lobe also and he was just hospitalized so I assume this is a healthcare associated pneumonitis I always cover with an anti fungal such as voriconazole because he may just as well of colonized with that and he is a type 2 diabetic he looks like he is perfectly compensated he is not in respiratory distress there is no accessory muscle use his hemodynamics and vital signs are excellent I just recommend getting a urine toxicology to prove that he was taking the benzodiazepine and I would cover him argue a bleed the no 1st staph and enteric g negatives but I might cover him empirically the no for both mold and yeast colonization as well Time Spent With Patient Time: Total time managing care of this patient today 35____ minutes.
[2022-10-07 13:41] LABS: ~Lactic Acid-LAB USE ONLY 3.1 mmol/L (0.5-2.0)
[2022-10-07] MEDS: vancomycin/NS 2,000 MG/500 ML PLAST..BAG 250 MG IV (13:54)
[2022-10-07] MEDS: Enoxaparin Sodium 40 MG/0.4 ML SYRINGE SUBCUT (13:57)
--- NOTE | 2022-10-07 14:06 | PC.NURSE ---
Alert and oriented. Patient aware he is NPO at this time. vss, HR 103. vanco/fluids running per order
--- NOTE | 2022-10-07 14:14 | PHA.PROG ---
Admission Date/Time: October 07, 2022 12:55 Indication: PNA Weight in k.6 kg Adjusted body weight in K.22 [place] body weight in Kg: Obesity Dosing Indication % IBW: Serum Creatinine - Last 168 Hours 10/07/22 11:45 Creatinine 1.30 Estimated CrCl and GFR - Last 168 Hours 10/07/22 11:45 Estim Creat Clear Calc 61.9 Estimated GFR 56 Vancomycin Loading Dose: 2000 Current Vancomycin Dosing Regimen: 1250 Q24H Vancomycin Monitoring using AUC goal of 400 - 600 range with trough as surrogate marker: AUC 460, TROUGH 13.4 Date and Time for next Vancomycin Level to be drawn: RANDOM 10/09 @1200 Pharmacist Comments on Vancomycin Plan: Vancomycin dosing will take advantage of [employer] as a clinical decision support tool that uses Bayesian modeling to calculate individual patient's pharmacokinetic parameters and forecast the patient's drug concentration time course with the target goal AUC 24 range of 400 - 600 mg/L/hr.
--- NOTE | 2022-10-07 14:42 | PC.NURSE ---
Patient continues to report feeling much better. remains npo. 96% on high flow. Urine/sputum obtained per order
[2022-10-07] MEDS: 0.9 % Sodium Chloride 1,000 ML 80 ML IVCONT (14:54)
[2022-10-07 14:55] LABS: Amphetamine Screen Urine Not Detected (Not Detect); Barbiturates, Urine Not Detected (Not Detect); Benzodiazepines Screen Urine POSITIVE (Not Detect); Cannabinoid Screen Urine Not Detected (Not Detect); Cocaine Screen Urine Not Detected (Not Detect); Fentanyl, urine Not Detected (Not Detect); Opiate Screen Urine Not Detected (Not Detect); Phencyclidine Screen Urine Not Detected (Not Detect)
[2022-10-07] MEDS: 0.9 % Sodium Chloride Flush 3 ML SYRINGE IVFLUSH (14:58)
[2022-10-07 15:28] LABS: Reflex Lactate? 2 Y
[2022-10-07 16:10] LABS: ~Lactic Acid-LAB USE ONLY 1.9 mmol/L (0.5-2.0)
--- NOTE | 2022-10-07 16:20 | PC.NURSE ---
Positive bowel sounds 4, resting comfortably with no complaints of pain
--- NOTE | 2022-10-07 16:54 | PC.NURSE ---
Report given to accepting unit, Ronnie to transport
[2022-10-07 17:24] LABS: Glucose, Whole Blood 309 mg/dL (60-115)
--- NOTE | 2022-10-07 17:26 | PC.NURSE ---
with patients consent daughter/grandaughter updated on current condition
[2022-10-07] MEDS: Insulin Lispro 100 UNIT/ML 3 ML VIAL SUBCUT ×2 (17:31→21:19)
--- NOTE | 2022-10-07 17:32 | PC.NURSE ---
BS 309, insulin given perorder
[2022-10-07] MEDS: Piperacillin Sodium/Tazobactam 4.5 GM in 0.9 % Sodium Chloride 100 ML IV (18:34)
[2022-10-07 19:50] LABS: Glucose, Whole Blood 256 mg/dL (60-115)
[2022-10-07] MEDS: bisacodyL 10 MG SUPP.RECT PR (21:03)
[2022-10-07] MEDS: Triamcinolone Acet 0.5 % Cream 15 GM TUBE 1 APPL TOPICAL (21:34)
--- NOTE | 2022-10-07 22:03 | PC.NURSE ---
Lantus was on hold per Provider despite POC of 256 at HS. pt is NPO pending swallow eval. Given 6 units lispro per sliding scale.
[2022-10-08] VITALS (7 sets, daily range): BP systolic 119–151; BP diastolic 58–68; PULSE 76–87; RESP 14–20; TEMP 36.2–36.9; O2SAT 92–98
[2022-10-08] MEDS: 0.9 % Sodium Chloride Flush 3 ML SYRINGE IVFLUSH ×4 (00:19→19:40)
[2022-10-08] MEDS: Piperacillin Sodium/Tazobactam 4.5 GM in 0.9 % Sodium Chloride 100 ML IV ×4 (00:21→17:16)
[2022-10-08] MEDS: ALPRAZolam 0.5 MG TABLET 1 MG PO (00:54)
[2022-10-08] MEDS: oxyCODONE HCl Immed Release 5 MG TABLET 2.5 MG PO ×2 (00:54→11:36)
[2022-10-08] MEDS: 0.9 % Sodium Chloride 1,000 ML 80 ML IVCONT (04:53)
[2022-10-08] MEDS: Omeprazole 20 MG CAPSULE.DR PO ×2 (05:44→19:39)
[2022-10-08 07:05] LABS: Glucose, Whole Blood 149 mg/dL (60-115)
[2022-10-08 08:05] LABS: Estimated Glomerular Filt Rate > 60
[2022-10-08 09:41] LABS: Hematocrit 33.6 % (42.0-52.0); Hemoglobin 10.5 g/dl (14.0-18.0); Mean Corpuscular HGB Conc 31.3 g/dl (31.0-36.0); Mean Corpuscular Hemoglobin 25.5 pg (27.0-33.0); Mean Corpuscular Volume 81.8 fL (80.0-98.0); Mean Platelet Volume 12.7 fL (9.4-12.4); Platelet Count 155 X10*3/uL (160-400); Red Blood Count 4.11 X10*6/uL (4.60-5.80); Red Cell Distribution Width 15.9 % (11.0-16.0); White Blood Count 15.1 X10*3/uL (4.8-10.8)
[2022-10-08] MEDS: Pantoprazole Sodium 40 MG/10 ML VIAL IVPUSH (09:46)
[2022-10-08] MEDS: Triamcinolone Acet 0.5 % Cream 15 GM TUBE 1 APPL TOPICAL ×2 (09:47→19:40)
--- NOTE | 2022-10-08 09:58 | MHC.CM.PN ---
EMR REVIEWED, CM MET W/PT WHO REPORTS HE LIVES W/, DOES ADL'S/SHOWERING INDEPENDENTLY, USES A CAN[employer] AND DIABET[employer] SUPPLIES FOR DME, HAS DAILY [facility]NA EXCEPT TUES/FRI AND THIS WAS CONFIRMED W/PT'S NURSE DANNY [phone] WHO REPORTS [facility] IS [facility]. PT VERIFIES PCP IS THROUGH [facility] BRYAN MERCADO NP W/ DR [facility] OVERSEEING, RENNY FROM [facility] PT REPORTS HE IS FULLY VACCINATED AGAINST COVID19 AND HIS SON SHARON KING IS HIS HCP, COPY HAS BEEN REQUESTED. ANTIC D/C HOME W/RESUMP OF A [facility] VNA, PT AT [facility] AND PT'S SON SHARON FOR TRANSPORT.
[2022-10-08 10:38] LABS: Anion Gap 15 (12-20); Blood Urea Nitrogen 22 mg/dL (9-16); Calcium 8.5 mg/dL (8.4-10.2); Carbon Dioxide 22 mmol/L (22-29); Chloride 109 mmol/L (96-108); Creatinine Clr Calc Pharmacy 70.6; Estimated Glomerular Filt Rate > 60; Glucose Random 137 mg/dL (60-115); Sodium 142 mmol/L (135-145)
[2022-10-08 10:48] LABS: Iron 16 mcg/dL (45-160); Percent Iron Saturation 7 % (15-50); Total Iron Binding Capacity 243 mcg/dL (228-428); Unsaturated Iron Binding 227 ug/dL
[2022-10-08 10:50] LABS: Ferritin 88 ng/mL (20-250)
[2022-10-08 11:03] LABS: Glucose, Whole Blood 149 mg/dL (60-115)
--- NOTE | 2022-10-08 11:45 | P.CNPS_ITS ---
History of Present Illness Date of Service: 10/08/22 Chief Complaint: multifocal pnemonia, sepsis, hypoxia Reason for Consult: Medication consultatio Requesting physician: Anibal Alarcon Sources of Information: patient interviewed and chart reviewed Additional Sources of Information: Mason Calles [employer] [phone] [facility] [phone] left Guicho Danielle NP [facility] [phone] [facility] [address] [phone] HPI Narrative: 62 yo male, admitted to [facility] 10/05- with toxic metabolic encephalopathy, requiring Narcan, causing WILLIAM, admitted 10/07 to [facility] with acute multifocal pneumonia with sepsis, acute hypoxemic respiratory failure, acute toxic metabolic encephalopathy. Hx of IDDM2 and chronic pain from fibromyalgia and peripheral neuropathy. Psychiatric history pt reports panic, depression, an xiety, substance use history Pt currently on a combinations of psychotropics/pain meds what may be contributing to current sx. Asked by team to assess. Met with pt who is alert, oriented to person, place, sitation, general time (morning) who reports he had been taking medications as directed. Reports a long hx of stable regime with the exception of recently having to take Oxycodone 5mg 2 tabs q4h prn for pain instead of the 10 mg tab he had been taking. Reports he believes sx initiated with that change several weeks ago. Family reported to team an increase in vaping as a concern in addition. Pt reports regime to be effective for mgt of panic. He encourages calls to his provider group to discuss and will make any changes they suggest. Reports Xanax use x 15 years. [facility] a change in Oxycodone tabs from 10 mg to 5 mg 08/20/22 due to supply issues. No change however from IR to ER and dosage was confirmed similiar to 10 mg dosing. Message left with [facility] Brooklynn SPENCERbeth [phone]. Care discussed with PCP Mason Calles of [place] [phone] who sent pt to [facility] on 10/05 as he believes he became confused with taking his pain meds and took wifes pain meds (also Oxycodone) in addition as pt was asking to increase pain meds. [facility] has been scheduled to visit pt upon discharge. Reports pain control has not been an issue- No psych meds were changed recently-Sertraline was decreased and Ambien discontinued within the past months, Baclofen was added 6-7 months ago. No hx of med seeking behaviors, just some apparant confusion around dosage changes in pain regime. Care discussed with Guicho Danielle of [facility] who concurs with no new changes and a stable regime which pt has done well with. Past Psychiatric History: Pt reports out pt care with [facility], Guicho Danielle CLERK MANAGER Medical Evaluation Reviewed: Yes Review of Systems Constitutional: Reports fatigue, Reports lethargy and Reports malaise Eyes: Reports no additional eye complaints Reports system reviewed and no additional complaints, except as documented Cardiovascular: Reports no additional cardiovascular complaints and Reports dyspnea Respiratory: Reports dyspnea Gastrointestinal: Reports no additional gastrointestinal complaints Genitourinary: Reports no additional male genitourinary complaints Musculoskeletal: Reports no additional musculoskeletal complaints Skin/Breast: Reports system reviewed and no additional complaints, except as docu Reports system reviewed and no additional complaints, except as documented Psychiatric: Reports anxiety, Reports depression and Reports panic attacks Endocrine: Reports fatigue Hematologic/Lymphatic: Reports no additional hematologic/lymphatic complaints Allergic/Immunologic: Reports no additional allergic/immunologic complaints [facility] Medical History (Updated 10/08/22 @ 17:25 by Rebecca Vaughan, CLERK MANAGER) Chronic pain disorder Combined opioid with non-opioid drug dependence, continuous Depression with anxiety Dyslipidemia Fibromyalgia History of cocaine use History of marijuana use Insulin dependent type 2 diabetes mellitus Opioid dependence Panic anxiety syndrome Peripheral neuropathy Persistent moderate somatic symptom disorder Recurrent major depression Substance History: Cannabis Hx Cocaine Hx Diagnostics Vital Signs (24Hr): Vital Signs - 24 hr 10/07/22 11:58 10/07/22 12:02 10/07/22 13:47 Temperature 101.3 F H 99.3 F Pulse Rate 120 H Respiratory Rate 20 18 Blood Pressure Pulse Oximetry Oxygen Delivery Method Oxygen Flow Rate Fraction of Inspired Oxygen 10/07/22 14:02 10/07/22 15:10 10/07/22 16:02 Temperature 98.9 F 100.8 F H Pulse Rate 105 H 99 Respiratory Rate 16 19 17 Blood Pressure 119/74 118/64 Pulse Oximetry 95 97 Oxygen Delivery Method High Flow Nasal Cannula High Flow Nasal Cannula Oxygen Flow Rate Fraction of Inspired Oxygen 10/07/22 17:50 10/07/22 19:20 10/07/22 20:54 Temperature 98.1 F 97.1 F Pulse Rate 94 84 Respiratory Rate 20 20 16 Blood Pressure 111/65 142/69 H Pulse Oximetry 94 97 Oxygen Delivery Method High Flow Nasal Cannula High Flow Nasal Cannula Oxygen Flow Rate 50 55 Fraction of Inspired Oxygen 50 55 10/07/22 23:59 10/08/22 00:00 10/08/22 03:18 Temperature 97.2 F 97.1 F Pulse Rate 86 86 Respiratory Rate 16 20 20 Blood Pressure 132/60 126/60 Pulse Oximetry 98 97 Oxygen Delivery Method High Flow Nasal Cannula High Flow Nasal Cannula Oxygen Flow Rate 50 50 Fraction of Inspired Oxygen 50 50 10/08/22 04:19 10/08/22 07:18 10/08/22 11:07 Temperature 97.1 F 97.3 F Pulse Rate 76 80 Respiratory Rate 18 20 20 Blood Pressure 138/68 126/61 Pulse Oximetry 96 94 Oxygen Delivery Method High Flow Nasal Cannula Room Air Oxygen Flow Rate 50 Fraction of Inspired Oxygen 50 BMI result Body Mass Index 25.9 Labs 10/08/22 09:07 10/08/22 09:07 Labs: Laboratory Results - last 48 hr 10/07/22 10/07/22 10/07/22 10:52 10:52 10:53 WBC 7.4 RBC 5.23 Hgb 13.5 L Hct 42.0 MCV 80.3 MCH 25.8 L MCHC 32.1 RDW 15.4 Plt Count 224 MPV 12.4 Immature Gran % (Auto) 0.1 Neut % (Auto) 79.3 H Lymph % (Auto) 15.7 L Hodgeman % (Auto) 4.3 Eos % (Auto) 0.3 Baso % (Auto) 0.3 Lymph # (Auto) 1.2 Hodgeman # (Auto) 0.3 Eos # (Auto) 0.0 Baso # (Auto) 0.0 Abs Immat Gran (auto) 0.01 Absolute Neuts (auto) 5.9 Absolute Nucleated RBC 0.000 Nucleated RBC % (auto) 0.0 PT INR O2 Saturation ABG pH at Pt Temp ABG pCO2 at Pt Temp ABG pO2 at Pt Temp ABG HCO3 ABG Base Excess (Actual) VBG pH VBG pCO2 VBG pO2 VBG HCO3 VBG O2 Saturation VBG Base Excess Sodium Potassium Chloride Carbon Dioxide Anion Gap BUN Creatinine Estim Creat Clear Calc Estimated GFR POC Glucose Random Glucose Lactic Acid 3.5 H* Lactic Acid F/U @ 2Hr Lactic Acid F/U @ 4Hr Calcium Iron TIBC % Saturation Unsat Iron Binding Ferritin Total Bilirubin AST ALT Alkaline Phosphatase B-Natriuretic Peptide 31 Total Protein Albumin Urine Opiates Screen Urine Fentanyl Screen Ur Barbiturates Screen Ur Phencyclidine Scrn Ur Amphetamines Screen U Benzodiazepines Scrn Urine Cocaine Screen U Marijuana (THC) Screen Ethyl Alcohol Influenza Type A (PCR) Influenza Type B (PCR) RSV RNA Qual (PCR) SARS-CoV-2 RNA (RT-PCR) Blood Type Antibody Screen 10/07/22 10/07/22 10/07/22 10:55 10:57 11:45 WBC RBC Hgb Hct MCV MCH MCHC RDW Plt Count MPV Immature Gran % (Auto) Neut % (Auto) Lymph % (Auto) Hodgeman % (Auto) Eos % (Auto) Baso % (Auto) Lymph # (Auto) Hodgeman # (Auto) Eos # (Auto) Baso # (Auto) Abs Immat Gran (auto) Absolute Neuts (auto) Absolute Nucleated RBC Nucleated RBC % (auto) PT 10.0 INR 0.9 O2 Saturation ABG pH at Pt Temp ABG pCO2 at Pt Temp ABG pO2 at Pt Temp ABG HCO3 ABG Base Excess (Actual) VBG pH 7.50 H VBG pCO2 30 VBG pO2 69 VBG HCO3 23 VBG O2 Saturation 92.0 VBG Base Excess 1.6 Sodium 144 Potassium 3.6 Chloride 107 Carbon Dioxide 21 L Anion Gap 20 BUN 14 Creatinine 1.30 Estim Creat Clear Calc 61.9 Estimated GFR 56 POC Glucose Random Glucose 312 H Lactic Acid Lactic Acid F/U @ 2Hr Lactic Acid F/U @ 4Hr Calcium 9.8 Iron TIBC % Saturation Unsat Iron Binding Ferritin Total Bilirubin 0.4 AST 26 ALT 22 Alkaline Phosphatase 128 H B-Natriuretic Peptide Total Protein 7.2 Albumin 3.9 Urine Opiates Screen Urine Fentanyl Screen Ur Barbiturates Screen Ur Phencyclidine Scrn Ur Amphetamines Screen U Benzodiazepines Scrn Urine Cocaine Screen U Marijuana (THC) Screen Ethyl Alcohol < 10 Influenza Type A (PCR) Influenza Type B (PCR) RSV RNA Qual (PCR) SARS-CoV-2 RNA (RT-PCR) Blood Type Antibody Screen 10/07/22 10/07/22 10/07/22 11:45 11:47 13:25 WBC RBC Hgb Hct MCV MCH MCHC RDW Plt Count MPV Immature Gran % (Auto) Neut % (Auto) Lymph % (Auto) Hodgeman % (Auto) Eos % (Auto) Baso % (Auto) Lymph # (Auto) Hodgeman # (Auto) Eos # (Auto) Baso # (Auto) Abs Immat Gran (auto) Absolute Neuts (auto) Absolute Nucleated RBC Nucleated RBC % (auto) PT INR O2 Saturation 83.0 ABG pH at Pt Temp 7.35 ABG pCO2 at Pt Temp 42 ABG pO2 at Pt Temp 58 L ABG HCO3 23 ABG Base Excess (Actual) -1.7 VBG pH VBG pCO2 VBG pO2 VBG HCO3 VBG O2 Saturation VBG Base Excess Sodium Potassium Chloride Carbon Dioxide Anion Gap BUN Creatinine Estim Creat Clear Calc Estimated GFR POC Glucose Random Glucose Lactic Acid Lactic Acid F/U @ 2Hr 3.1 H* Lactic Acid F/U @ 4Hr Calcium Iron TIBC % Saturation Unsat Iron Binding Ferritin Total Bilirubin AST ALT Alkaline Phosphatase B-Natriuretic Peptide Total Protein Albumin Urine Opiates Screen Urine Fentanyl Screen Ur Barbiturates Screen Ur Phencyclidine Scrn Ur Amphetamines Screen U Benzodiazepines Scrn Urine Cocaine Screen U Marijuana (THC) Screen Ethyl Alcohol Influenza Type A (PCR) NEGATIVE Influenza Type B (PCR) NEGATIVE RSV RNA Qual (PCR) NEGATIVE SARS-CoV-2 RNA (RT-PCR) NEGATIVE Blood Type Antibody Screen 10/07/22 10/07/22 10/07/22 14:39 15:48 17:19 WBC RBC Hgb Hct MCV MCH MCHC RDW Plt Count MPV Immature Gran % (Auto) Neut % (Auto) Lymph % (Auto) Hodgeman % (Auto) Eos % (Auto) Baso % (Auto) Lymph # (Auto) Hodgeman # (Auto) Eos # (Auto) Baso # (Auto) Abs Immat Gran (auto) Absolute Neuts (auto) Absolute Nucleated RBC Nucleated RBC % (auto) PT INR O2 Saturation ABG pH at Pt Temp ABG pCO2 at Pt Temp ABG pO2 at Pt Temp ABG HCO3 ABG Base Excess (Actual) VBG pH VBG pCO2 VBG pO2 VBG HCO3 VBG O2 Saturation VBG Base Excess Sodium Potassium Chloride Carbon Dioxide Anion Gap BUN Creatinine Estim Creat Clear Calc Estimated GFR POC Glucose 309 H Random Glucose Lactic Acid Lactic Acid F/U @ 2Hr Lactic Acid F/U @ 4Hr 1.9 Calcium Iron TIBC % Saturation Unsat Iron Binding Ferritin Total Bilirubin AST ALT Alkaline Phosphatase B-Natriuretic Peptide Total Protein Albumin Urine Opiates Screen Not Detected Urine Fentanyl Screen Not Detected Ur Barbiturates Screen Not Detected Ur Phencyclidine Scrn Not Detected Ur Amphetamines Screen Not Detected U Benzodiazepines Scrn POSITIVE H Urine Cocaine Screen Not Detected U Marijuana (THC) Screen Not Detected Ethyl Alcohol Influenza Type A (PCR) Influenza Type B (PCR) RSV RNA Qual (PCR) SARS-CoV-2 RNA (RT-PCR) Blood Type Antibody Screen 10/07/22 10/08/22 10/08/22 19:46 06:10 06:10 WBC 10.9 H RBC 2.95 L D Hgb 7.7 L D Hct 24.4 L D MCV 82.7 MCH 26.1 L MCHC 31.6 RDW 16.1 H Plt Count 123 L D MPV 12.1 Immature Gran % (Auto) 0.5 H Neut % (Auto) 84.4 H Lymph % (Auto) 9.9 L Hodgeman % (Auto) 4.9 Eos % (Auto) 0.0 Baso % (Auto) 0.3 Lymph # (Auto) 1.1 L Hodgeman # (Auto) 0.5 Eos # (Auto) 0.0 Baso # (Auto) 0.0 Abs Immat Gran (auto) 0.06 H Absolute Neuts (auto) 9.2 H Absolute Nucleated RBC 0.000 Nucleated RBC % (auto) 0.0 PT INR O2 Saturation ABG pH at Pt Temp ABG pCO2 at Pt Temp ABG pO2 at Pt Temp ABG HCO3 ABG Base Excess (Actual) VBG pH VBG pCO2 VBG pO2 VBG HCO3 VBG O2 Saturation VBG Base Excess Sodium 167 H* Potassium 2.6 L D Chloride 118 H Carbon Dioxide 15 L Anion Gap 37 H BUN 15 Creatinine 0.77 Estim Creat Clear Calc 104.5 Estimated GFR > 60 POC Glucose 256 H Random Glucose 99 Lactic Acid Lactic Acid F/U @ 2Hr Lactic Acid F/U @ 4Hr Calcium 5.1 L* D Iron TIBC % Saturation Unsat Iron Binding Ferritin Total Bilirubin AST ALT Alkaline Phosphatase B-Natriuretic Peptide Total Protein Albumin Urine Opiates Screen Urine Fentanyl Screen Ur Barbiturates Screen Ur Phencyclidine Scrn Ur Amphetamines Screen U Benzodiazepines Scrn Urine Cocaine Screen U Marijuana (THC) Screen Ethyl Alcohol Influenza Type A (PCR) Influenza Type B (PCR) RSV RNA Qual (PCR) SARS-CoV-2 RNA (RT-PCR) Blood Type Antibody Screen 10/08/22 10/08/22 10/08/22 07:01 09:07 09:07 WBC RBC Hgb Hct MCV MCH MCHC RDW Plt Count MPV Immature Gran % (Auto) Neut % (Auto) Lymph % (Auto) Hodgeman % (Auto) Eos % (Auto) Baso % (Auto) Lymph # (Auto) Hodgeman # (Auto) Eos # (Auto) Baso # (Auto) Abs Immat Gran (auto) Absolute Neuts (auto) Absolute Nucleated RBC Nucleated RBC % (auto) PT INR O2 Saturation ABG pH at Pt Temp ABG pCO2 at Pt Temp ABG pO2 at Pt Temp ABG HCO3 ABG Base Excess (Actual) VBG pH VBG pCO2 VBG pO2 VBG HCO3 VBG O2 Saturation VBG Base Excess Sodium Potassium Chloride Carbon Dioxide Anion Gap BUN Creatinine Estim Creat Clear Calc Estimated GFR POC Glucose 149 H Random Glucose Lactic Acid Lactic Acid F/U @ 2Hr Lactic Acid F/U @ 4Hr Calcium Iron 16 L TIBC 243 % Saturation 7 L Unsat Iron Binding 227 Ferritin 88 Total Bilirubin AST ALT Alkaline Phosphatase B-Natriuretic Peptide Total Protein Albumin Urine Opiates Screen Urine Fentanyl Screen Ur Barbiturates Screen Ur Phencyclidine Scrn Ur Amphetamines Screen U Benzodiazepines Scrn Urine Cocaine Screen U Marijuana (THC) Screen Ethyl Alcohol Influenza Type A (PCR) Influenza Type B (PCR) RSV RNA Qual (PCR) SARS-CoV-2 RNA (RT-PCR) Blood Type O Positive Antibody Screen NEGATIVE 10/08/22 10/08/22 10/08/22 09:07 09:07 10:59 WBC 15.1 H RBC 4.11 L D Hgb 10.5 L D Hct 33.6 L D MCV 81.8 MCH 25.5 L MCHC 31.3 RDW 15.9 Plt Count 155 L D MPV 12.7 H Immature Gran % (Auto) Neut % (Auto) Lymph % (Auto) Hodgeman % (Auto) Eos % (Auto) Baso % (Auto) Lymph # (Auto) Hodgeman # (Auto) Eos # (Auto) Baso # (Auto) Abs Immat Gran (auto) Absolute Neuts (auto) Absolute Nucleated RBC 0.000 Nucleated RBC % (auto) 0.0 PT INR O2 Saturation ABG pH at Pt Temp ABG pCO2 at Pt Temp ABG pO2 at Pt Temp ABG HCO3 ABG Base Excess (Actual) VBG pH VBG pCO2 VBG pO2 VBG HCO3 VBG O2 Saturation VBG Base Excess Sodium 142 Potassium 4.0 D Chloride 109 H Carbon Dioxide 22 Anion Gap 15 BUN 22 H Creatinine 1.14 Estim Creat Clear Calc 70.6 Estimated GFR > 60 POC Glucose 149 H Random Glucose 137 H Lactic Acid Lactic Acid F/U @ 2Hr Lactic Acid F/U @ 4Hr Calcium 8.5 D Iron TIBC % Saturation Unsat Iron Binding Ferritin Total Bilirubin AST ALT Alkaline Phosphatase B-Natriuretic Peptide Total Protein Albumin Urine Opiates Screen Urine Fentanyl Screen Ur Barbiturates Screen Ur Phencyclidine Scrn Ur Amphetamines Screen U Benzodiazepines Scrn Urine Cocaine Screen U Marijuana (THC) Screen Ethyl Alcohol Influenza Type A (PCR) Influenza Type B (PCR) RSV RNA Qual (PCR) SARS-CoV-2 RNA (RT-PCR) Blood Type Antibody Screen Imaging Radiology Impressions: ITS Impressions Chest X-Ray 10/07/22 10:56 IMPRESSION: Diffuse, dense patchy opacities throughout the entirety of the left lung. Findings are concerning for an infectious or inflammatory process. Abdomen/Pelvis CT 10/07/22 11:28 IMPRESSION: 1. Diffuse patchy and centrally dense airspace opacities throughout the entirety of the left lung. Minimal patchy, ground-glass airspace opacities throughout the entirety of the right lung. Findings are consistent with multifocal pneumonia. No pleural effusion. 2. No significant lymphadenopathy. 3. No bowel wall thickening or inflammatory change. No small or large bowel obstruction. Unremarkable appendix. 4. No intra-abdominal mass, lymphadenopathy, or ascites. 5. Prominent prostatomegaly. Chest CT 10/07/22 11:28 IMPRESSION: 1. Diffuse patchy and centrally dense airspace opacities throughout the entirety of the left lung. Minimal patchy, ground-glass airspace opacities throughout the entirety of the right lung. Findings are consistent with multifocal pneumonia. No pleural effusion. 2. No significant lymphadenopathy. 3. No bowel wall thickening or inflammatory change. No small or large bowel obstruction. Unremarkable appendix. 4. No intra-abdominal mass, lymphadenopathy, or ascites. 5. Prominent prostatomegaly. KUB X-Ray 10/07/22 13:54 IMPRESSION: Mild to moderate constipation. Mental Status Exam Mental Status Exam Patient Appearance: Fatigued Patient Orientation: Person, Place, Time (morning) and Situation Level of Consciousness: Sedated and Alert Patient Behavior: Appropriate, Talkative, Cooperative, Anxious and Good Eye Contact Mood Description: Anxious Affect Description: Anxious Patient Cognition Impaired: No Ability to Follow Directions: Fair Speech Pattern: Spontaneous Speech Memory Description: Episodic Impaired Hallucinations: None Delusions: Not Present Thought Process: Rumination Thought Content: positive for Circumstantial, positive for Logical and positive for Suicidal Ideation (denies) Depressive Symptoms: Increased Anxiety, Increased Fatigue, Thoughts of /Suicide (denies) and Loss of Energy Judgement: Fair Medications Medications Current Medications Acetaminophen (Acetaminophen 325 Mg Tablet) 650 mg PO Q6H PRN PRN Reason: Pain, Mild (Pain Scale 1-3) Alprazolam (Alprazolam 0.5 Mg Tablet) 1 mg PO TID PRN PRN Reason: Anxiety Last Admin: 10/08/22 00:54 Dose: 1 mg Baclofen (Baclofen 20 Mg Tablet) 20 mg PO BID PRN PRN Reason: muscle spasm Bisacodyl (Bisacodyl 10 Mg Supp.Rect) 10 mg LA BEDTIME [facility] Last Admin: 10/07/22 21:03 Dose: 10 mg Clonidine HCl (Clonidine Hcl 0.1 Mg Tablet) 0.1 mg PO BID PRN; Protocol PRN Reason: Anxiety Dextrose (Dextrose 50 % 25 Gm/50 Ml Syringe) 25 gm IVPUSH Q15M PRN; Protocol PRN Reason: per Hypoglycemia Standing Ord. Duloxetine HCl (Duloxetine Hcl 30 Mg Capsule.Dr) 30 mg PO BEDTIME [facility] Last Admin: 10/07/22 21:00 Dose: Not Given Ezetimibe (Ezetimibe 10 Mg Tablet) 10 mg PO DAILY [facility] Last Admin: 10/08/22 09:35 Dose: Not Given Glucose (Glucose Gel 15 Gm Gel..Gram.) 15 gm PO Q15M PRN; Protocol PRN Reason: per Hypoglycemia Standing Ord. Piperacillin Sod/Tazobactam (Sod 4.5 gm/ Sodium Chloride) 100 mls @ 200 mls/hr IV Q6H [facility] Last Admin: 10/08/22 11:38 Dose: 200 mls/hr Sodium Chloride (Ns) 1,000 mls @ 80 mls/hr IVCONT .[id number] [facility] Last Infusion: 10/08/22 09:49 Dose: 0 mls/hr Vancomycin HCl 1,250 mg/ (Sodium Chloride) 250 mls @ 166.667 mls/hr IV Q24H [facility] Insulin Glargine (Insulin Glargine,Hum.Rec.Anlog 100 Unit/Ml 10 Ml Vial) 18 unit SUBCUT BEDTIME [facility] Last Admin: 10/07/22 21:20 Dose: Not Given Insulin Human Lispro (Insulin Lispro 100 Unit/Ml 3 Ml Vial) 0 unit SUBCUT QIDACHS [facility]; Protocol Last Admin: 10/08/22 11:26 Dose: Not Given Magnesium Oxide (Magnesium Oxide 400 Mg Tablet) 400 mg PO BEDTIME [facility] Last Admin: 10/07/22 20:00 Dose: Not Given Melatonin (Melatonin 3 Mg Tablet) 3 mg PO BEDTIME [facility] Last Admin: 10/07/22 21:01 Dose: Not Given Metoprolol Tartrate (Metoprolol Tartrate 12.5 Mg Halftab) 12.5 mg PO DAILY [facility]; Protocol Last Admin: 10/08/22 09:36 Dose: Not Given Mirtazapine (Mirtazapine 7.5 Mg Tablet) 7.5 mg PO BEDTIME [facility] Last Admin: 10/07/22 21:01 Dose: Not Given Multivitamins/Vitamin C (Multivitamin Tablet) 1 tab PO DAILY [facility] Last Admin: 10/08/22 09:36 Dose: Not Given Omeprazole (Omeprazole 20 Mg Capsule.Dr) 20 mg PO DAILY@0630 [facility] Last Admin: 10/08/22 05:44 Dose: 20 mg Ondansetron HCl (Ondansetron Hcl 4 Mg/2 Ml Vial) 4 mg IVPUSH Q8H PRN PRN Reason: Nausea and Vomiting Oxycodone HCl (Oxycodone Hcl Immed Release 5 Mg Tablet) 2.5 mg PO Q4H PRN PRN Reason: severe pain Last Admin: 10/08/22 11:36 Dose: 2.5 mg Pantoprazole Sodium (Pantoprazole Sodium 40 Mg/10 Ml Vial) 40 mg IVPUSH BID@0630,1630 [facility] Last Admin: 10/08/22 09:46 Dose: 40 mg Pharmacy Consult (Consult Rx Perform Med Rec) 1 each MISCELLANE ONCE PRN PRN Reason: Consult order Pharmacy Consult (Consult Rx Vancomycin Dosing) 1 each MISCELLANE DAILY PRN PRN Reason: Consult order Pregabalin (Pregabalin 75 Mg Capsule) 75 mg PO BID [facility] Last Admin: 10/08/22 09:36 Dose: Not Given Primidone (Primidone 50 Mg Tablet) 50 mg PO DAILY [facility] Last Admin: 10/08/22 09:36 Dose: Not Given Senna (Sennosides 8.6 Mg Tablet) 17.2 mg PO BEDTIME PRN PRN Reason: Constipation Sertraline HCl (Sertraline Hcl 100 Mg Tablet) 100 mg PO DAILY [facility] Last Admin: 10/08/22 09:36 Dose: Not Given Sodium Chloride (0.9 % Sodium Chloride Flush 3 Ml Syringe) 3 ml IVFLUSH QSHIFT [facility] Last Admin: 10/08/22 09:46 Dose: 3 ml Tamsulosin HCl (Tamsulosin Hcl 0.4 Mg Capsule) 0.4 mg PO BEDTIME [facility] Last Admin: 10/07/22 21:01 Dose: Not Given Triamcinolone Acetonide (Triamcinolone Acet 0.5 % Cream 15 Gm Tube) 1 appl TOPICAL BID [facility] Last Admin: 10/08/22 09:47 Dose: 1 appl Allergies Allergies Allergy/AdvReac Type Severity Reaction Status Date / Time No Known Allergies Allergy Unverified 12/10/19 15:45 Assessment & Plan Assessment & Plan (1) Recurrent major depression: Status: Acute Code(s): F33.9 - Major depressive disorder, recurrent, unspecified (2) Panic anxiety syndrome: Status: Acute Code(s): F41.0 - Panic disorder [episodic paroxysmal anxiety] (3) Combined opioid with non-opioid drug dependence, continuous: Status: Acute Code(s): F11.20 - Opioid dependence, uncomplicated; F19.20 - Other psychoactive substance dependence, uncomplicated Plan 62 yo male, history of major depression, panic disorder, opiate and benzodi azepine dependence to manage medical and psychiatric symptoms admitted with acute multifolcal pneumonia with spesis, acute hypoxemic respiratory failure, acute toxic metabolic encephalopathy after an admission to [facility] 10/05- with metabolic encephalopathy. PCP team believes pt became confused and used his 's oxycodone, precipitating the [facility] admission. Discussed regime with out patient providers. Xanax currently in place for ~15 years and will take time to cross taper-consider this when pt returns to out pt teams as tapering may precipiate further MSE changes Consider. 1. Continue Xanax, Cymbalta, Mirtazapine, Sertraline. 2. Decrease Oxycodone to 5 mg q 4 hours prn severe pain. 3. PCP team reports [facility] is scheduled to work with pt's meds at home to decrease potential for error in medicating. 4. Moving forward, Cymbalta can be increased to assist with pain mgt as an option. Total time managing care of this patient today ____ minutes. Informed Consent: further education needed
--- NOTE | 2022-10-08 12:26 | PM.CNNEP ---
History of Present Illness Reason for Consult Consult date: 10/08/22 Chief Complaint Chief complaint: multifocal pnemonia, sepsis, hypoxia History of Present Illness Narrative: 62-year-old male admitted with pneumonia was found to have elevated serum sodium and initally elevated serum creatinine. At the time of the consultation he denies fevers, chills, chest pains, abdominal pain, nausea, diarrhea. Review of Systems Review of Systems 10 points ROS negative except for pertinent in HPI PMFSH Past Medical History Medical History Chronic pain disorder Depression with anxiety Dyslipidemia Fibromyalgia History of cocaine use History of marijuana use Insulin dependent type 2 diabetes mellitus Opioid dependence Peripheral neuropathy Persistent moderate somatic symptom disorder Social History Social History Household Members: Spouse and Family Housing: House Do you presently have visiting nurse or other home services: Yes Alcohol intake: former Patient Tobacco Use Status: Never used Tobacco service: No Meds Allergies Allergy/AdvReac Type Severity Reaction Status Date / Time No Known Allergies Allergy Unverified 12/10/19 15:45 Active Medications: Current Medications Acetaminophen (Acetaminophen 325 Mg Tablet) 650 mg PO Q6H PRN PRN Reason: Pain, Mild (Pain Scale 1-3) Alprazolam (Alprazolam 0.5 Mg Tablet) 1 mg PO TID PRN PRN Reason: Anxiety Last Admin: 10/08/22 00:54 Dose: 1 mg Baclofen (Baclofen 20 Mg Tablet) 20 mg PO BID PRN PRN Reason: muscle spasm Bisacodyl (Bisacodyl 10 Mg Supp.Rect) 10 mg [place] BEDTIME RYAN Last Admin: 10/07/22 21:03 Dose: 10 mg Clonidine HCl (Clonidine Hcl 0.1 Mg Tablet) 0.1 mg PO BID PRN; Protocol PRN Reason: Anxiety Dextrose (Dextrose 50 % 25 Gm/50 Ml Syringe) 25 gm IVPUSH Q15M PRN; Protocol PRN Reason: per Hypoglycemia Standing Ord. Duloxetine HCl (Duloxetine Hcl 30 Mg Capsule.Dr) 30 mg PO BEDTIME [facility]YAN Last Admin: 10/07/22 21:00 Dose: Not Given Ezetimibe (Ezetimibe 10 Mg Tablet) 10 mg PO DAILY [facility] Last Admin: 10/08/22 09:35 Dose: Not Given Glucose (Glucose Gel 15 Gm Gel..Gram.) 15 gm PO Q15M PRN; Protocol PRN Reason: per Hypoglycemia Standing Ord. Piperacillin Sod/Tazobactam (Sod 4.5 gm/ Sodium Chloride) 100 mls @ 200 mls/hr IV Q6H [facility] Last Infusion: 10/08/22 12:23 Dose: Infused Sodium Chloride (Ns) 1,000 mls @ 80 mls/hr IVCONT .[id number] [facility] Last Infusion: 10/08/22 09:49 Dose: 0 mls/hr Vancomycin HCl 1,250 mg/ (Sodium Chloride) 250 mls @ 166.667 mls/hr IV Q24H [facility] Insulin Glargine (Insulin Glargine,Hum.Rec.Anlog 100 Unit/Ml 10 Ml Vial) 18 unit SUBCUT BEDTIME [facility] Last Admin: 10/07/22 21:20 Dose: Not Given Insulin Human Lispro (Insulin Lispro 100 Unit/Ml 3 Ml Vial) 0 unit SUBCUT QIDACHS [facility]; Protocol Last Admin: 10/08/22 11:26 Dose: Not Given Magnesium Oxide (Magnesium Oxide 400 Mg Tablet) 400 mg PO BEDTIME [facility] Last Admin: 10/07/22 20:00 Dose: Not Given Melatonin (Melatonin 3 Mg Tablet) 3 mg PO BEDTIME [facility] Last Admin: 10/07/22 21:01 Dose: Not Given Metoprolol Tartrate (Metoprolol Tartrate 12.5 Mg Halftab) 12.5 mg PO DAILY [facility]; Protocol Last Admin: 10/08/22 09:36 Dose: Not Given Mirtazapine (Mirtazapine 7.5 Mg Tablet) 7.5 mg PO BEDTIME [facility] Last Admin: 10/07/22 21:01 Dose: Not Given Multivitamins/Vitamin C (Multivitamin Tablet) 1 tab PO DAILY [facility] Last Admin: 10/08/22 09:36 Dose: Not Given Omeprazole (Omeprazole 20 Mg Capsule.Dr) 20 mg PO DAILY@0630 [facility] Last Admin: 10/08/22 05:44 Dose: 20 mg Ondansetron HCl (Ondansetron Hcl 4 Mg/2 Ml Vial) 4 mg IVPUSH Q8H PRN PRN Reason: Nausea and Vomiting Oxycodone HCl (Oxycodone Hcl Immed Release 5 Mg Tablet) 2.5 mg PO Q4H PRN PRN Reason: severe pain Last Admin: 10/08/22 11:36 Dose: 2.5 mg Pantoprazole Sodium (Pantoprazole Sodium 40 Mg/10 Ml Vial) 40 mg IVPUSH BID@0630,1630 [facility] Last Admin: 10/08/22 09:46 Dose: 40 mg Pharmacy Consult (Consult Rx Perform Med Rec) 1 each MISCELLANE ONCE PRN PRN Reason: Consult order Pharmacy Consult (Consult Rx Vancomycin Dosing) 1 each MISCELLANE DAILY PRN PRN Reason: Consult order Pregabalin (Pregabalin 75 Mg Capsule) 75 mg PO BID [facility] Last Admin: 10/08/22 09:36 Dose: Not Given Primidone (Primidone 50 Mg Tablet) 50 mg PO DAILY [facility] Last Admin: 10/08/22 09:36 Dose: Not Given Senna (Sennosides 8.6 Mg Tablet) 17.2 mg PO BEDTIME PRN PRN Reason: Constipation Sertraline HCl (Sertraline Hcl 100 Mg Tablet) 100 mg PO DAILY [facility] Last Admin: 10/08/22 09:36 Dose: Not Given Sodium Chloride (0.9 % Sodium Chloride Flush 3 Ml Syringe) 3 ml IVFLUSH QSHIFT [facility] Last Admin: 10/08/22 09:46 Dose: 3 ml Tamsulosin HCl (Tamsulosin Hcl 0.4 Mg Capsule) 0.4 mg PO BEDTIME [facility] Last Admin: 10/07/22 21:01 Dose: Not Given Triamcinolone Acetonide (Triamcinolone Acet 0.5 % Cream 15 Gm Tube) 1 appl TOPICAL BID [facility] Last Admin: 10/08/22 09:47 Dose: 1 appl Home Medications Medication Instructions Recorded Confirmed Last Taken Type acetaminophen 500 mg tablet 1,000 mg PO Q8H PRN Pain 10/07/22 10/07/22 Unknown History alprazolam 2 mg tablet 2 mg PO TID PRN Anxiety 10/07/22 10/07/22 Unknown History baclofen 20 mg tablet 20 mg PO BID PRN muscle spasm 10/07/22 10/07/22 Unknown History betamethasone dipropionate 0.05 % 1 appl topical BID 10/07/22 10/07/22 10/07/22 09:00 History topical cream cholecalciferol (vitamin D3) 50 50 mcg PO DAILY 0710/07/22 10/07/22 09:00 History mcg (2,000 unit) capsule clonidine HCl 0.1 mg tablet 0.1 mg PO BID PRN Anxiety 10/07/22 10/07/22 Unknown History duloxetine 30 mg capsule,delayed 30 mg PO BEDTIME 10/07/22 10/07/22 10/06/22 History release empagliflozin 10 mg tablet 10 mg PO DAILY 10/07/22 10/07/22 10/07/22 09:00 History (Jardiance) ezetimibe 10 mg tablet 10 mg PO DAILY 10/07/22 10/07/22 10/07/22 09:00 History insulin glargine 100 unit/mL (3 50 unit subcut BEDTIME 10/07/22 10/07/22 10/06/22 History mL) subcutaneous pen (Lantus Solostar U-100 Insulin) insulin glargine 100 unit/mL (3 52 unit subcut DAILY 10/07/22 10/07/22 Unknown History mL) subcutaneous pen (Lantus Solostar U-100 Insulin) linagliptin 5 mg tablet (Tradjenta) 5 mg PO DAILY 10/07/22 10/07/22 10/07/22 09:00 History losartan 25 mg tablet 12.5 mg PO DAILY@1200 10/07/22 10/07/22 Unknown History magnesium oxide 400 mg (241.3 mg 400 mg PO BEDTIME 10/07/22 10/07/22 10/06/22 History magnesium) tablet melatonin 3 mg tablet 3 mg PO BEDTIME insomnia 10/07/22 10/07/22 10/06/22 History metformin 1,000 mg tablet 1,000 mg PO BID 10/07/22 10/07/22 10/07/22 09:00 History metoprolol tartrate 25 mg tablet 12.5 mg PO DAILY 10/07/22 10/07/22 10/07/22 09:00 History mirtazapine 7.5 mg tablet 7.5 mg PO BEDTIME 10/07/22 10/07/22 10/06/22 History multivitamin with folic acid 400 1 tab PO DAILY 10/07/22 10/07/22 10/07/22 09:00 History mcg tablet (Daily-Robert (with folic acid)) oxycodone 5 mg tablet 10 mg PO Q4H PRN severe pain 10/07/22 10/07/22 Unknown History pantoprazole 20 mg tablet,delayed 20 mg PO DAILY@0630 10/07/22 10/07/22 10/07/22 06:30 History release pregabalin 100 mg capsule 100 mg PO BID 10/07/22 10/07/22 10/07/22 09:00 History primidone 50 mg tablet 50 mg PO DAILY 10/07/22 10/07/22 10/07/22 09:00 History sertraline 100 mg tablet 100 mg PO DAILY 10/07/22 10/07/22 10/07/22 09:00 History simvastatin 80 mg tablet 80 mg PO BEDTIME 10/07/22 10/07/22 10/06/22 History tamsulosin 0.4 mg capsule 0.4 mg PO BEDTIME 10/07/22 10/07/22 10/06/22 History Physical Exam Vital Signs: Last Vital Signs Temp 97.3 F 10/08/22 11:07 Pulse 80 10/08/22 11:07 Resp 20 10/08/22 11:07 BP 126/61 10/08/22 11:07 Pulse Ox 94 10/08/22 11:07 O2 Del Method Room Air 10/08/22 11:07 O2 Flow Rate 50 10/08/22 07:18 FiO2 50 10/08/22 07:18 Oxygen Flow Rate 15 10/07/22 10:42 BMI result Body Mass Index 25.9 Const General: alert and awake HEENT Head: Yes normocephalic and Yes atraumatic Neck Neck: Yes supple Resp Auscultation: diminished lung sounds Cardio Heart sounds: S1 normal heart sound present and S2 normal heart sound present GI Palpation (GI): Soft to palpation and nontender Extrem General: No edema Results Lab Results 10/08/22 09:07 10/08/22 09:07 Lab results: Chemistry 10/07/22 10/08/22 10/08/22 11:45 06:10 09:07 Sodium 144 167 H* 142 Potassium 3.6 2.6 L D 4.0 D Carbon Dioxide 21 L 15 L 22 BUN 14 15 22 H Creatinine 1.30 0.77 1.14 Calcium 9.8 5.1 L* D 8.5 D Hematology 10/07/22 10/08/22 10/08/22 10:52 06:10 09:07 WBC 7.4 10.9 H 15.1 H Hgb 13.5 L 7.7 L D 10.5 L D Plt Count 224 123 L D 155 L D Assessment and Plan (1) WILLIAM (acute kidney injury): Status: Acute (2) Hypernatremia: Status: Acute Plan WILLIAM due to renal hypoperfusion elevated serum sodium c/w free water deficit cannot rule out contamination with saline infusion REC c/w current management follow kidney function and electrolytes Time Spent With Patient Time: Total time managing care of this patient today ____ minutes. Procedures Date of Service Date of Service: 10/08/22
[2022-10-08 13:33] LABS: Sodium 140 mmol/L (135-145)
[2022-10-08 13:34] LABS: Chloride 107 mmol/L (96-108)
[2022-10-08 13:35] LABS: Carbon Dioxide 23 mmol/L (22-29)
[2022-10-08 13:38] LABS: Anion Gap 14 (12-20); Blood Urea Nitrogen 22 mg/dL (9-16)
[2022-10-08 13:39] LABS: Creatinine Clr Calc Pharmacy 76.6
[2022-10-08 13:40] LABS: Calcium 8.6 mg/dL (8.4-10.2); Glucose Random 140 mg/dL (60-115)
[2022-10-08 13:45] LABS: Alanine Aminotransferase 17 U/L (0-40); Albumin Level 3.3 g/dL (3.5-5.0); Alkaline Phosphatase 66 U/L (39-117); Aspartate Amino Transferase 19 U/L (5-37); Bilirubin Direct 0.3 mg/dL (0.0-0.5); Bilirubin Total 0.7 mg/dL (0.0-1.0); Total Protein 6.2 g/dL (6.5-8.0)
[2022-10-08] MEDS: vancomycin HCL 1,250 MG in 0.9 % Sodium Chloride 250 ML 166.67 MG IV (13:53)
[2022-10-08] MEDS: oxyCODONE HCl Immed Release 5 MG TABLET PO ×2 (13:53→19:38)
[2022-10-08 13:58] LABS: Procalcitonin 44.14 ng/mL
--- NOTE | 2022-10-08 14:13 | MHC.SL.SWA ---
Speech Pathologist Impression: Risk of Aspiration Due to: History of Pneumonia Dysphasia Diet Status: Mild oral phase dysphagia: Ground/Mechanical (NDD2) with THIN liquds, pills whole with puree or liquid. Liquid Consistency and Strategies for Safe Swallow: Liquid Intake Recommendation: Thin Liquid Intake Strategies: Small Sips Solid Food Consistency: Dietary Recommendations: Grnd/Mech Altered (NDD2) Additional Modifications to Solid Foods: Add sauces/gravies. Alternate liquids and solids. Oral Medication Intake: Whole with Puree Please contact the pharmacy regarding appropriate crushable or liquid drug formulations that are available whenever modified delivery is recommended. Compensatory Strategies and Precautions to be Taken for Safe Swallow: Sitting Upright (90 deg) Liquids from Cup Liquids from Straw Small Bites and Sips Alternate Liquids/Solids Supervision While Eating and Drinking for Safe Swallow: None Needed Foods to Avoid: Difficult to chew solids Swallowing Recommended Treatments: Compens. Strategy Educat. Recommendation for Speech: Inpatient Speech Therapy Comment: Patient presents with most aspect of swallow WFL, with mild oral phase dysphagia due to edentulous state. Patient has mild oral management issues with more solid foods, with some maladaptive patterns (e.g. uses tongue to mash and soften food). Recommend start diet of Ground/Mechanical Altered (NDD2) with Thin liquids, pills whole with puree or with liquid. Patient can be fully independent with feeding self. , RD notified of diet recommendation by secure text, discussed with RN in person. MID LEVEL PRACTITIONER to f/u 1-2 times for toleration of diet, possible upgrade if warranted. Frequency/Duration: Date Range for Service Req: Timeline to reassess: Box Sorter Clinican/Clinical Fellow: No Supervisory Statement: I have reviewed and agree with the student/clinical fellow's documentation: N/A Speech Language Pathologist: Jacqueline Holder M.A., CCC-MID LEVEL PRACTITIONER
[2022-10-08 14:18] LABS: OBS Int Ctl Valid YES; OBS1 NEGATIVE (NEGATIVE)
--- NOTE | 2022-10-08 15:02 | HO.PM.IMPN ---
Subjective Subjective Date of Service: 10/08/22 Interval History: hypoxic respiratory failure Review of Systems sob some what improving has cough no fevers denies any chest pain or abd pain Physical Exam Vital Signs: Vital Signs: Last Vital Signs Temp 97.3 F 10/08/22 11:07 Pulse 80 10/08/22 11:07 Resp 20 10/08/22 11:07 BP 126/61 10/08/22 11:07 Pulse Ox 94 10/08/22 11:07 O2 Del Method Room Air 10/08/22 11:07 O2 Flow Rate 50 10/08/22 07:18 FiO2 50 10/08/22 07:18 Oxygen Flow Rate 15 10/07/22 10:42 BMI result Body Mass Index 25.9 Appearance: Alert.? Oriented X3.? sob.? cvs: rrr, [id number] res: clear to auscultation ,no rhonchii or wheezing abd: no rebound or guarding ,nt, bs present. ext pulses present , no cyanosis ,Gait well balanced well coordinated. neuro: axo3 , nonfocal. Objective Data Active Medications Acetaminophen (Acetaminophen 325 Mg Tablet) 650 mg PO Q6H PRN PRN Reason: Pain, Mild (Pain Scale 1-3) Alprazolam (Alprazolam 0.5 Mg Tablet) 1 mg PO TID PRN PRN Reason: Anxiety Last Admin: 10/08/22 00:54 Dose: 1 mg Documented By: ALYCE Baclofen (Baclofen 20 Mg Tablet) 20 mg PO BID PRN PRN Reason: muscle spasm Bisacodyl (Bisacodyl 10 Mg Supp.Rect) 10 mg [place] BEDTIME [facility] Last Admin: 10/07/22 21:03 Dose: 10 mg Documented By: JONNA Clonidine HCl (Clonidine Hcl 0.1 Mg Tablet) 0.1 mg PO BID PRN; Protocol PRN Reason: Anxiety Dextrose (Dextrose 50 % 25 Gm/50 Ml Syringe) 25 gm IVPUSH Q15M PRN; Protocol PRN Reason: per Hypoglycemia Standing Ord. Duloxetine HCl (Duloxetine Hcl 30 Mg Capsule.Dr) 30 mg PO BEDTIME [facility] Last Admin: 10/07/22 21:00 Dose: Not Given Documented By: JONNA Non-Admin Reason: NPO Ezetimibe (Ezetimibe 10 Mg Tablet) 10 mg PO DAILY [facility] Last Admin: 10/08/22 09:35 Dose: Not Given Documented By: DOMI Non-Admin Reason: NPO Glucose (Glucose Gel 15 Gm Gel..Gram.) 15 gm PO Q15M PRN; Protocol PRN Reason: per Hypoglycemia Standing Ord. Piperacillin Sod/Tazobactam (Sod 4.5 gm/ Sodium Chloride) 100 mls @ 200 mls/hr IV Q6H [facility] Last Infusion: 10/08/22 12:23 Dose: 0 mls/hr Documented By: DOMI Vancomycin HCl 1,250 mg/ (Sodium Chloride) 250 mls @ 166.667 mls/hr IV Q24H [facility] Last Admin: 10/08/22 13:53 Dose: 166.67 mls/hr Documented By: HENRIK Insulin Glargine (Insulin Glargine,Hum.Rec.Anlog 100 Unit/Ml 10 Ml Vial) 18 unit SUBCUT BEDTIME [facility] Last Admin: 10/07/22 21:20 Dose: Not Given Documented By: JONNA Non-Admin Reason: NPO Insulin Human Lispro (Insulin Lispro 100 Unit/Ml 3 Ml Vial) 0 unit SUBCUT QIDACHS [facility]; Protocol Last Admin: 10/08/22 11:26 Dose: Not Given Documented By: DOMI Non-Admin Reason: No Insulin Coverage Magnesium Oxide (Magnesium Oxide 400 Mg Tablet) 400 mg PO BEDTIME [facility] Last Admin: 10/07/22 20:00 Dose: Not Given Documented By: JONNA Non-Admin Reason: NPO Melatonin (Melatonin 3 Mg Tablet) 3 mg PO BEDTIME [facility] Last Admin: 10/07/22 21:01 Dose: Not Given Documented By: JONNA Non-Admin Reason: NPO Metoprolol Tartrate (Metoprolol Tartrate 12.5 Mg Halftab) 12.5 mg PO DAILY [facility]; Protocol Last Admin: 10/08/22 09:36 Dose: Not Given Documented By: DOMI Non-Admin Reason: NPO Mirtazapine (Mirtazapine 7.5 Mg Tablet) 7.5 mg PO BEDTIME [facility] Last Admin: 10/07/22 21:01 Dose: Not Given Documented By: JONNA Non-Admin Reason: NPO Multivitamins/Vitamin C (Multivitamin Tablet) 1 tab PO DAILY [facility] Last Admin: 10/08/22 09:36 Dose: Not Given Documented By: DOMI Non-Admin Reason: NPO Omeprazole (Omeprazole 20 Mg Capsule.Dr) 20 mg PO DAILY@0630 [facility] Last Admin: 10/08/22 05:44 Dose: 20 mg Documented By: ALYCE Ondansetron HCl (Ondansetron Hcl 4 Mg/2 Ml Vial) 4 mg IVPUSH Q8H PRN PRN Reason: Nausea and Vomiting Oxycodone HCl (Oxycodone Hcl Immed Release 5 Mg Tablet) 5 mg PO Q4H PRN PRN Reason: severe pain Last Admin: 10/08/22 13:53 Dose: 5 mg Documented By: HENRIK Pantoprazole Sodium (Pantoprazole Sodium 40 Mg/10 Ml Vial) 40 mg IVPUSH BID@0630,1630 [facility] Last Admin: 10/08/22 09:46 Dose: 40 mg Documented By: DOMI Pharmacy Consult (Consult Rx Perform Med Rec) 1 each MISCELLANE ONCE PRN PRN Reason: Consult order Pharmacy Consult (Consult Rx Vancomycin Dosing) 1 each MISCELLANE DAILY PRN PRN Reason: Consult order Pregabalin (Pregabalin 75 Mg Capsule) 75 mg PO BID [facility] Last Admin: 10/08/22 09:36 Dose: Not Given Documented By: DOMI Non-Admin Reason: NPO Primidone (Primidone 50 Mg Tablet) 50 mg PO DAILY [facility] Last Admin: 10/08/22 09:36 Dose: Not Given Documented By: DOMI Non-Admin Reason: NPO Senna (Sennosides 8.6 Mg Tablet) 17.2 mg PO BEDTIME PRN PRN Reason: Constipation Sertraline HCl (Sertraline Hcl 100 Mg Tablet) 100 mg PO DAILY [facility] Last Admin: 10/08/22 09:36 Dose: Not Given Documented By: DOMI Non-Admin Reason: NPO Sodium Chloride (0.9 % Sodium Chloride Flush 3 Ml Syringe) 3 ml IVFLUSH QSHIFT [facility] Last Admin: 10/08/22 09:46 Dose: 3 ml Documented By: DOMI Tamsulosin HCl (Tamsulosin Hcl 0.4 Mg Capsule) 0.4 mg PO BEDTIME [facility] Last Admin: 10/07/22 21:01 Dose: Not Given Documented By: JONNA Non-Admin Reason: NPO Triamcinolone Acetonide (Triamcinolone Acet 0.5 % Cream 15 Gm Tube) 1 appl TOPICAL BID [facility] Last Admin: 10/08/22 09:47 Dose: 1 appl Documented By: DOMI Labs 10/08/22 09:07 10/08/22 09:07 Labs: Laboratory Results - last 24 hr 10/07/22 10/07/22 10/07/22 15:48 17:19 19:46 MCV MCH MCHC RDW Plt Count MPV Immature Gran % (Auto) Neut % (Auto) Lymph % (Auto) [place] % (Auto) Eos % (Auto) Baso % (Auto) Lymph # (Auto) [place] # (Auto) Eos # (Auto) Baso # (Auto) Abs Immat Gran (auto) Absolute Neuts (auto) Absolute Nucleated RBC Nucleated RBC % (auto) Anion Gap Estim Creat Clear Calc Estimated GFR POC Glucose 309 H 256 H Random Glucose Lactic Acid F/U @ 4Hr 1.9 Calcium Iron TIBC % Saturation Unsat Iron Binding Ferritin Total Bilirubin Direct Bilirubin AST ALT Alkaline Phosphatase Total Protein Albumin Procalcitonin Stool Occult Blood Blood Type Antibody Screen 10/08/22 10/08/22 10/08/22 06:10 06:10 07:01 MCV 82.7 MCH 26.1 L MCHC 31.6 RDW 16.1 H Plt Count 123 L D MPV 12.1 Immature Gran % (Auto) 0.5 H Neut % (Auto) 84.4 H Lymph % (Auto) 9.9 L [place] % (Auto) 4.9 Eos % (Auto) 0.0 Baso % (Auto) 0.3 Lymph # (Auto) 1.1 L [place] # (Auto) 0.5 Eos # (Auto) 0.0 Baso # (Auto) 0.0 Abs Immat Gran (auto) 0.06 H Absolute Neuts (auto) 9.2 H Absolute Nucleated RBC 0.000 Nucleated RBC % (auto) 0.0 Anion Gap 14 Estim Creat Clear Calc 76.6 Estimated GFR > 60 POC Glucose 149 H Random Glucose 140 H Lactic Acid F/U @ 4Hr Calcium 8.6 D Iron TIBC % Saturation Unsat Iron Binding Ferritin Total Bilirubin 0.7 Direct Bilirubin 0.3 AST 19 ALT 17 Alkaline Phosphatase 66 Total Protein 6.2 L Albumin 3.3 L Procalcitonin 44.14 Stool Occult Blood Blood Type Antibody Screen 10/08/22 10/08/22 10/08/22 09:07 09:07 09:07 MCV 81.8 MCH 25.5 L MCHC 31.3 RDW 15.9 Plt Count 155 L D MPV 12.7 H Immature Gran % (Auto) Neut % (Auto) Lymph % (Auto) [place] % (Auto) Eos % (Auto) Baso % (Auto) Lymph # (Auto) [place] # (Auto) Eos # (Auto) Baso # (Auto) Abs Immat Gran (auto) Absolute Neuts (auto) Absolute Nucleated RBC 0.000 Nucleated RBC % (auto) 0.0 Anion Gap Estim Creat Clear Calc Estimated GFR POC Glucose Random Glucose Lactic Acid F/U @ 4Hr Calcium Iron 16 L TIBC 243 % Saturation 7 L Unsat Iron Binding 227 Ferritin 88 Total Bilirubin Direct Bilirubin AST ALT Alkaline Phosphatase Total Protein Albumin Procalcitonin Stool Occult Blood Blood Type O Positive Antibody Screen NEGATIVE 10/08/22 10/08/22 10/08/22 09:07 10:59 13:15 MCV MCH MCHC RDW Plt Count MPV Immature Gran % (Auto) Neut % (Auto) Lymph % (Auto) [place] % (Auto) Eos % (Auto) Baso % (Auto) Lymph # (Auto) [place] # (Auto) Eos # (Auto) Baso # (Auto) Abs Immat Gran (auto) Absolute Neuts (auto) Absolute Nucleated RBC Nucleated RBC % (auto) Anion Gap 15 Estim Creat Clear Calc 70.6 Estimated GFR > 60 POC Glucose 149 H Random Glucose 137 H Lactic Acid F/U @ 4Hr Calcium 8.5 Iron TIBC % Saturation Unsat Iron Binding Ferritin Total Bilirubin Direct Bilirubin AST ALT Alkaline Phosphatase Total Protein Albumin Procalcitonin Stool Occult Blood NEGATIVE Blood Type Antibody Screen Microbiology Microbiology Results: Microbiology 10/07/22 10:57 Blood Culture - Preliminary Blood - Arterial No growth after 24 hours. 10/07/22 14:39 Gram Stain - Final Sputum - Expectorated Sputum Culture - Final Assessment and Plan (1) Multifocal pneumonia: Status: Acute (2) Acute respiratory failure with hypoxia: Status: Acute (3) Sepsis: Status: Acute Plan 62-year-old male with history of depression anxiety, insulin-dependent type 2 diabetes, fibromyalgia, dyslipidemia, peripheral neuropathy, persistent moderate somatic symptom disorder, history of polysubstance abuse including cocaine and marijuana but denies any ongoing use who is a former smoker admitted for further management of multifocal pneumonia due to suspected aspiration with acute hypoxemic respiratory failure and sepsis. Acute multifocal pneumonia ( aspirational vs hacp)with severe sepsis CT chest showing diffuse patchy and centrally dense airspace opacity throughout the entirety of the left long along with minimal patchy, ground-glass airspace opacities throughout the entirety of the right lung Suspect aspiration given recent admission to [facility]? 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 acute hypoxemic respiratory failure-likely secondary to above 10/07:ABG with pH 7.35, pCO2 42, PO2 58, bicarb 23 -Bedside echo performed by ICU provider and is without significant abnormality -Continue high flow O2, titrate as appropriate Acute toxic metabolic encephalopathy-mentation baseline today Recent adm [facility] 10/05- for toxic metabolic encephalopathy with sedating medication adjusted on discharge hold ativan , adjusted oxycocone, lyrica psych eval added-for medication adjustment ,patient is on multiple psych meds. Insulin-dependent type 2 diabetes- with hyperglycemia patient started eating now moniter fs started adjusted basal insulin hold oral antihyperglycemics.? Continue Jardiance,Humalog on sliding scale chronic pain disorder sedating medications adjusted as above due to toxic metabolic encephalopathy. continue oxycodone and Lyrica at reduced dose.? hold baclofen p.r.n. outpatient pain management follow-up history of polysubstance abuse benzo positive ,patient takes ativan at home ?labs error : cbc and bmp (labs repeated again in 2-3 hours without any intervention seems totally different) Spoke to the lab in detail-? Likely lab error. DVT prophylaxis-Lovenox Full code inaptient need:acute multifocal pneumonia with severe sepsis and acute hypoxemic respiratory failure requiring IV antibiotics, high-flow supplemental O2 and close monitoring to prevent cardiopulmonary decompensation including progression to septic shock Time Spent With Patient Time: Total time managing care of this patient today ____ minutes. Quality Stroke Does the patient have a stroke diagnosis?: No VTE Prior VTE?: No VTE Risk Level:: Medical - moderate - high VTE Device Contraindication: Treatment Not Indicated VTE Drug Contraindication: N/A - Med Ordered
[2022-10-08 16:19] LABS: Glucose, Whole Blood 181 mg/dL (60-115)
[2022-10-08] MEDS: Insulin Lispro 100 UNIT/ML 3 ML VIAL SUBCUT (17:16)
[2022-10-08] MEDS: Pregabalin 75 MG CAPSULE PO (19:38)
[2022-10-08] MEDS: Mirtazapine 7.5 MG TABLET PO (19:38)
[2022-10-08] MEDS: Tamsulosin HCL 0.4 MG CAPSULE PO (19:39)
[2022-10-08] MEDS: Melatonin 3 MG TABLET PO (19:39)
[2022-10-08] MEDS: Baclofen 20 MG TABLET PO (19:39)
[2022-10-08] MEDS: DULoxetine HCl 30 MG CAPSULE.DR PO (19:39)
[2022-10-08] MEDS: Magnesium Oxide 400 MG TABLET PO (19:40)
[2022-10-08 19:57] LABS: Glucose, Whole Blood 160 mg/dL (60-115)
[2022-10-09] VITALS: BP 140/66; PULSE 82; RESP 20; TEMP 36.1; O2SAT 95
[2022-10-09] MEDS: Piperacillin Sodium/Tazobactam 4.5 GM in 0.9 % Sodium Chloride 100 ML IV ×3 (01:20→12:48)
[2022-10-09 03:31] VITALS: BP 153/69; PULSE 75; RESP 20; TEMP 36.6; O2SAT 93
[2022-10-09 07:31] VITALS: BP 176/81; PULSE 74; RESP 20; TEMP 36.7; O2SAT 95
[2022-10-09 07:43] LABS: Glucose, Whole Blood 117 mg/dL (60-115)
[2022-10-09 07:48] LABS: Hematocrit 31.6 % (42.0-52.0); Mean Corpuscular HGB Conc 31.6 g/dl (31.0-36.0); Mean Corpuscular Hemoglobin 25.8 pg (27.0-33.0); Mean Corpuscular Volume 81.7 fL (80.0-98.0); Mean Platelet Volume 13.1 fL (9.4-12.4); Platelet Count 145 X10*3/uL (160-400); Red Blood Count 3.87 X10*6/uL (4.60-5.80); Red Cell Distribution Width 15.9 % (11.0-16.0); White Blood Count 13.7 X10*3/uL (4.8-10.8)
[2022-10-09 07:56] LABS: Anion Gap 14 (12-20); Blood Urea Nitrogen 18 mg/dL (9-16); Carbon Dioxide 22 mmol/L (22-29); Chloride 109 mmol/L (96-108); Creatinine Clr Calc Pharmacy 74.5; Estimated Glomerular Filt Rate > 60; Glucose Random 111 mg/dL (60-115); Potassium 3.9 mmol/L (3.3-5.1); Sodium 141 mmol/L (135-145)
[2022-10-09] MEDS: Pregabalin 75 MG CAPSULE PO (09:56)
[2022-10-09] MEDS: Primidone 50 MG TABLET PO (09:56)
[2022-10-09] MEDS: Sertraline HCL 100 MG TABLET PO (09:56)
[2022-10-09] MEDS: Metoprolol Tartrate 12.5 MG HALFTAB PO (09:56)
[2022-10-09] MEDS: Ezetimibe 10 MG TABLET PO (09:56)
[2022-10-09] MEDS: Omeprazole 20 MG CAPSULE.DR PO (09:56)
[2022-10-09] MEDS: Multivitamin TABLET 1 TAB PO (09:56)
[2022-10-09] MEDS: 0.9 % Sodium Chloride Flush 3 ML SYRINGE IVFLUSH (09:56)
[2022-10-09] MEDS: oxyCODONE HCl Immed Release 5 MG TABLET PO (10:00)
[2022-10-09] MEDS: Baclofen 20 MG TABLET PO (10:01)
--- NOTE | 2022-10-09 11:03 | P.DS_ITS ---
DS: Providers Provider Date of Service: 10/09/22 Date of admission: 10/07/22 12:55 Primary care physician: Mason Calles MD Consults: 10/08/22 07:53 Consult to Psychiatry Routine Consulting Provider: Psych Covering Reason for consultation: anxiety -multiple psych meds use -?need med adjustment 10/08/22 08:14 Consult to Nephrology Routine Consulting Provider: Александр Torres Reason for consultation: Hypernatremia Has provider been notified: No 10/08/22 15:16 Consult to Pulmonology Routine Consulting Provider: [facility] Reason for consultation: acut hypoxemic respiratory failure sec to multifocal pneumonia Has provider been notified: No DS: Diagnosis Discharge Diagnosis (1) Recurrent major depression: Status: Acute (2) Panic anxiety syndrome: Status: Acute (3) Combined opioid with non-opioid drug dependence, continuous: Status: Acute DS: Summary Hospital Course Hospital Course: Chief Complaint: sob 62-year-old male with history of depression anxiety, insulin-dependent type 2 diabetes, fibromyalgia, dyslipidemia, peripheral neuropathy, persistent moderate somatic symptom disorder, history of polysubstance abuse including cocaine and marijuana but denies any ongoing use who is a former smoker presents to the ED earlier this morning for evaluation of shortness of breath.? Patient was discharged from [facility] from 10/05-10/06 for acute toxic metabolic encephalopathy likely related to polypharmacy, admission complicated by WILLIAM and elevated trop in setting WILLIAM. Sedating medications were adjusted on discharge at [facility] yesterday. Pt denies taking medications inapparopriately. This morning reports he woke up with significant shortness breath and orthopnea. He has also had headache, lightheadedness, and reports coughing so hard that he did vomit x1.? Denies any fevers or chills at home, no abdominal pain, nausea, diarrhea, constipation, urinary symptoms, ongoing cough, palpitations, or chest pains. Last BM was yesterday. He denies any illicit drug use, ongoing smoking, or alcohol use. On arrival, patient was afebrile but did develop a fever of 101.3.? He has been tachycardic ranging 119-150 and tachypneic to 22.? No hypotension.? Per EMS, was satting at 50% on arrival and placed on non-rebreather.? He is now resting comfortably on high-flow O2 at 60%. EKG showed NSR, rate 149, with nonspecific T-wave abnormality but no ST E or depressions.? There is no leukocytosis.? Mild normocytic anemia with H/H 13.5/42.0%.? Creatinine 1.30, BUN 14, electrolyte levels normal, glucose 312.? Initial lactic acid 3.5, repeat 3.1 following 1 L IVF bolus.? BNP 31.? Ethyl alcohol level below detectable limits.? Urine tox screen pending.? Negative for influenza, RSV.? Initial chest x-ray showing diffuse, dense patchy opacities throughout the entirety of the left lung.? VBG and ABG reassuring.? Follow-up chest CT showing diffuse patchy and centrally dense airspace opacities throughout the entirety of the left lung with minimal patchy, ground-glass airspace opacities throughout the entirety of the right lung consistent with the multifocal pneumonia.? No pleural effusions or edema.? CT abdomen/pelvis negative for any acute intra-abdominal abnormality.? In the ED, received 975 mg Tylenol, 15 mg IV to ketorolac, 5 mg push IV Lopressor, 1 L IV NS, 3.375 g Zosyn.? Patient seen at bedside with Dr. Alarcon and initially noted to be somewhat encephalopathic.? Requested I see a provider evaluate patient given the 60% high-flow O2 and encephalopathy.? Bedside echo was performed by ICU provider which was without significant abnormality.? Etiology of patient's symptoms unlikely to be cardiac in nature.? Recommending admission to hospitalist service. Hospital course: Patient presented with shortness of breath brath, fever, elevated WBC and found to be septic due to multifocal pneumonia. He was initiated on IV antibitiocs with Zosyn and Vancomycin. Cultures have been negative. He feels good and wish to go home. I will discharge him with oral Augmentin and Doxycyline. Time Spent with Patient Time attestation: Total time managing care of this patient today ____ minutes. Discharge coordination time: Greater than 30 minutes Quality: Safe Use of Opioids Does Pt have an Active Cancer Diagnosis on the Problem List?: No Quality: Stroke Does the patient have a stroke diagnosis?: No Physical Exam Vital Signs: Vital Signs: Last Vital Signs Temp 98.0 F 10/09/22 07:31 Pulse 74 07/18/23 07:31 Resp 20 10/09/22 07:31 BP 176/81 H 10/09/22 07:31 Pulse Ox 95 10/09/22 07:31 O2 Del Method Nasal Cannula 10/09/22 07:31 O2 Flow Rate 1 10/09/22 07:31 FiO2 50 10/08/22 07:18 Oxygen Flow Rate 15 10/07/22 10:42 BMI result Body Mass Index 25.9 DS: Data Data Completed and Pending Labs on day of discharge: Laboratory Results - last 24 hr 10/08/22 10/08/22 10/08/22 06:10 09:07 09:07 WBC TNP RBC TNP 4.11 L D Hgb TNP 10.5 L D Hct TNP 33.6 L MCV TNP 81.8 MCH TNP MCHC TNP RDW TNP Plt Count TNP 155 L D MPV TNP Immature Gran % (Auto) TNP Neut % (Auto) TNP Lymph % (Auto) TNP [place] % (Auto) TNP Eos % (Auto) TNP Baso % (Auto) TNP Lymph # (Auto) TNP [place] # (Auto) TNP Eos # (Auto) TNP Baso # (Auto) TNP Abs Immat Gran (auto) TNP Absolute Neuts (auto) TNP Absolute Nucleated RBC TNP Nucleated RBC % (auto) TNP Sodium 140 Potassium 4.0 Chloride 107 Carbon Dioxide 23 Anion Gap 14 BUN 22 H Creatinine 1.05 Estim Creat Clear Calc 76.6 Estimated GFR > 60 POC Glucose Random Glucose 140 H Calcium 8.6 D Total Bilirubin 0.7 Direct Bilirubin 0.3 AST 19 ALT 17 Alkaline Phosphatase 66 Total Protein 6.2 L Albumin 3.3 L Procalcitonin 44.14 Stool Occult Blood 10/08/22 10/08/22 10/08/22 09:07 10:59 13:15 WBC RBC Hgb Hct MCV MCH MCHC RDW Plt Count MPV Immature Gran % (Auto) Neut % (Auto) Lymph % (Auto) [place] % (Auto) Eos % (Auto) Baso % (Auto) Lymph # (Auto) [place] # (Auto) Eos # (Auto) Baso # (Auto) Abs Immat Gran (auto) Absolute Neuts (auto) Absolute Nucleated RBC Nucleated RBC % (auto) Sodium 142 Potassium 4.0 Chloride 109 H Carbon Dioxide 22 Anion Gap 15 BUN 22 H Creatinine 1.14 Estim Creat Clear Calc 70.6 Estimated GFR > 60 POC Glucose 149 H Random Glucose 137 H Calcium 8.5 Total Bilirubin Direct Bilirubin AST ALT Alkaline Phosphatase Total Protein Albumin Procalcitonin Stool Occult Blood NEGATIVE 10/08/22 10/08/22 10/09/22 16:15 19:52 06:43 WBC 13.7 H RBC 3.87 L Hgb 10.0 L Hct 31.6 L MCV 81.7 MCH 25.8 L MCHC 31.6 RDW 15.9 Plt Count 145 L MPV 13.1 H Immature Gran % (Auto) Neut % (Auto) Lymph % (Auto) [place] % (Auto) Eos % (Auto) Baso % (Auto) Lymph # (Auto) [place] # (Auto) Eos # (Auto) Baso # (Auto) Abs Immat Gran (auto) Absolute Neuts (auto) Absolute Nucleated RBC 0.000 Nucleated RBC % (auto) 0.0 Sodium Potassium Chloride Carbon Dioxide Anion Gap BUN Creatinine Estim Creat Clear Calc Estimated GFR POC Glucose 181 H 160 H Random Glucose Calcium Total Bilirubin Direct Bilirubin AST ALT Alkaline Phosphatase Total Protein Albumin Procalcitonin Stool Occult Blood 10/09/22 10/09/22 06:44 07:29 WBC RBC Hgb Hct MCV MCH MCHC RDW Plt Count MPV Immature Gran % (Auto) Neut % (Auto) Lymph % (Auto) [place] % (Auto) Eos % (Auto) Baso % (Auto) Lymph # (Auto) [place] # (Auto) Eos # (Auto) Baso # (Auto) Abs Immat Gran (auto) Absolute Neuts (auto) Absolute Nucleated RBC Nucleated RBC % (auto) Sodium 141 Potassium 3.9 Chloride 109 H Carbon Dioxide 22 Anion Gap 14 BUN 18 H Creatinine 1.08 Estim Creat Clear Calc 74.5 Estimated GFR > 60 POC Glucose 117 H Random Glucose 111 Calcium 9.0 Total Bilirubin Direct Bilirubin AST ALT Alkaline Phosphatase Total Protein Albumin Procalcitonin Stool Occult Blood Preliminary micro results at discharge 10/07/22 11:02 Blood Culture - Preliminary Blood - Arterial No growth after 48 hours. 10/07/22 10:57 Blood Culture - Preliminary Blood - Arterial No growth after 24 hours. Discharge Plan Discharge Anticipated Discharge Date/Time: 10/09/22 11:04 Patient Disposition: Home, Self-Care Discharge Diagnosis: Pneumonia Referrals: Mason Calles MD [Primary Care Provider] - 1 Week Discharge Medications: New amoxicillin-pot clavulanate 875-125 mg tablet 1 tab PO Q12H Qty: 14 0RF doxycycline hyclate 100 mg capsule 100 mg PO BID Qty: 10 0RF Continued primidone 50 mg tablet 50 mg PO DAILY clonidine HCl 0.1 mg tablet 0.1 mg PO BID PRN (Reason: Anxiety) sertraline 100 mg tablet 100 mg PO DAILY melatonin 3 mg tablet 3 mg PO BEDTIME simvastatin 80 mg tablet 80 mg PO BEDTIME acetaminophen 500 mg tablet 1,000 mg PO Q8H PRN (Reason: Pain) baclofen 20 mg tablet 20 mg PO BID PRN (Reason: muscle spasm) pantoprazole 20 mg tablet,delayed release (DR/EC) 20 mg PO DAILY@0630 magnesium oxide 400 mg (241.3 mg magnesium) tablet 400 mg PO BEDTIME tamsulosin 0.4 mg capsule 0.4 mg PO BEDTIME metformin 1,000 mg tablet 1,000 mg PO BID losartan 25 mg tablet 12.5 mg PO DAILY@1200 betamethasone dipropionate 0.05 % cream 1 appl topical BID alprazolam 2 mg tablet 2 mg PO TID PRN (Reason: Anxiety) oxycodone 5 mg tablet 10 mg PO Q4H PRN (Reason: severe pain) ezetimibe 10 mg tablet 10 mg PO DAILY metoprolol tartrate 25 mg tablet 12.5 mg PO DAILY mirtazapine 7.5 mg tablet 7.5 mg PO BEDTIME duloxetine 30 mg capsule,delayed release(DR/EC) 30 mg PO BEDTIME pregabalin 100 mg capsule 100 mg PO BID insulin glargine [Lantus Solostar U-100 Insulin] 100 unit/mL (3 mL) insulin pen 50 unit subcut BEDTIME cholecalciferol (vitamin D3) 50 mcg (2,000 unit) capsule 50 mcg PO DAILY Tradjenta 5 mg tablet 5 mg PO DAILY multivitamin with folic acid [Daily-Robert (with folic acid)] 400 mcg tablet 1 tab PO DAILY Jardiance 10 mg tablet 10 mg PO DAILY insulin glargine [Lantus Solostar U-100 Insulin] 100 unit/mL (3 mL) insulin pen 52 unit subcut DAILY Discharge Orders: Discharge Order (Routine); Ordered 10/09/22 Ordered By: Roel Pickens Diet: Advance to usual diet Activity on Discharge: As tolerated Stand Alone Forms: Patient Portal Discharge page Care Plan Goals: full recovery from pneumonia Health Concerns: penumonia Plan of Treatment: take Augmentin and Doxycyline as recommended and follow up with your Doctor in a wek Assessment: as above
[2022-10-09 11:30] VITALS: BP 159/72; PULSE 73; RESP 20; TEMP 36.9; O2SAT 94
[2022-10-09 11:37] LABS: Glucose, Whole Blood 132 mg/dL (60-115)
[2022-10-09 12:35] LABS: Vancomycin Random 8.4 mcg/mL (15-20)
[2022-10-14 07:28] LABS: Legionella Ag Urine Not Detected (Not Detected)
[2022-10-14 15:43] LABS: Strep Pneumo Ag urine Not Detected (Not Detected)
== END 2022-10-09 14:21 | disposition home or self-care (01) | DRG 720 ==
LOC: HO.ED 12:35 → HO.EDOVER 13:08 → HO.IMC 15:01
PROVIDERS: Internal Medicine; Admitting Provider Physician Assistant; Emergency Provider Student in an Organized Health Care Education/Training Program; PCP General Practice; Visit Provider Internal Medicine
DX: A41.9 Sepsis, unspecified organism (principal); J96.01 Acute respiratory failure with hypoxia; J69.0 Pneumonitis due to inhalation of food and vomit; G92.8 Other toxic encephalopathy; N17.9 Acute kidney failure, unspecified; F11.20 Opioid dependence, uncomplicated; R65.20 Severe sepsis without septic shock; E11.65 Type 2 diabetes mellitus with hyperglycemia; E11.42 Type 2 diabetes mellitus with diabetic polyneuropathy; F33.9 Major depressive disorder, recurrent, unspecified; E87.0 Hyperosmolality and hypernatremia; F41.0 Panic disorder [episodic paroxysmal anxiety]; G89.29 Other chronic pain; F19.10 Other psychoactive substance abuse, uncomplicated; Z20.822 Contact with and (suspected) exposure to COVID-19; Z79.4 Long term (current) use of insulin; Z79.84 Long term (current) use of oral hypoglycemic drugs; Z79.899 Other long term (current) drug therapy
CPT/HCPCS: 0241U; 36415; 71045; 71260; 74018; 74177; 80048; 80053; 80076; 80202; 80307; 82272; 82728; 82803; 82947; 83540; 83605; 83880; 84145; 85025; 85027; 85610; 86850; 86900; 86901; 87040; 87070; 87205; 87449; 87899; 92610; 93005; 94799; 99285; J1650; J1885; J2543; J3370; J3371; Q9967

== ENCOUNTER → 2022-10-07 10:40 | Outpatient (BNV) | payer MEDICAID, SELFPAY | PROVIDERS: Admitting Provider Physician Assistant; Emergency Provider Student in an Organized Health Care Education/Training Program; PCP General Practice; Visit Provider Internal Medicine Cardiovascular Disease | DX: R00.0 Tachycardia, unspecified (principal); R94.31 Abnormal electrocardiogram [ECG] [EKG] | CPT/HCPCS: 93010 ==

== ENCOUNTER → 2022-10-07 12:55 | Outpatient (BNV) | payer OTHER, SELFPAY | PROVIDERS: Admitting Provider Physician Assistant; Emergency Provider Student in an Organized Health Care Education/Training Program; Visit Provider Internal Medicine Cardiovascular Disease | DX: F11.20 Opioid dependence, uncomplicated (principal) | CPT/HCPCS: 99291 ==

== ENCOUNTER → 2022-10-07 12:55 | Outpatient (BNV) | payer MEDICAID, SELFPAY | PROVIDERS: Admitting Provider Physician Assistant; Emergency Provider Student in an Organized Health Care Education/Training Program; PCP General Practice; Visit Provider Physician Assistant | DX: F33.9 Major depressive disorder, recurrent, unspecified (principal); F41.0 Panic disorder [episodic paroxysmal anxiety]; F11.20 Opioid dependence, uncomplicated; F19.20 Other psychoactive substance dependence, uncomplicated | CPT/HCPCS: 99223; 99233; 99239 ==

== ENCOUNTER → 2022-10-07 12:55 | Outpatient (BNV) | payer OTHER, SELFPAY | PROVIDERS: Admitting Provider Physician Assistant; Emergency Provider Student in an Organized Health Care Education/Training Program; PCP General Practice; Visit Provider Clinical Nurse Specialist Psychiatric/Mental Health, Adult | DX: F33.9 Major depressive disorder, recurrent, unspecified (principal); F41.0 Panic disorder [episodic paroxysmal anxiety]; F11.20 Opioid dependence, uncomplicated; F19.20 Other psychoactive substance dependence, uncomplicated | CPT/HCPCS: 99222 ==